=== PATIENT | female | born 1995 | race African-American/Black ===

== ENCOUNTER → 2020-06-16 08:28 | Outpatient (BNVA) | payer OTHER, SELFPAY | PROVIDERS: PCP Internal Medicine; Visit Provider Surgery ==

== ENCOUNTER 2020-06-19 15:59 | Outpatient (REF) | payer OTHER, SELFPAY ==
[2020-06-20 14:22] LABS: H Pylori Breath Test NOT DETECTED (NOT DETECTED)
== END 2020-06-19 16:00 | disposition home or self-care (01) ==
LOC: HO.LNP 15:59
PROVIDERS: Surgery; PCP Internal Medicine; Visit Provider Physician Assistant
DX: Z01.818 Encounter for other preprocedural examination (principal); A04.8 Other specified bacterial intestinal infections
CPT/HCPCS: 83013

== ENCOUNTER 2020-06-20 09:34 | Outpatient (REF) | payer OTHER, SELFPAY ==
--- NOTE | ~2020-06-20 | XR_ITS ---
EXAMINATION: XR CHEST CLINICAL INFORMATION: Shortness of breath. COMPARISON: None TECHNIQUE: 2 views of the chest were obtained. FINDINGS: No significant abnormality is noted involving the heart, lungs, mediastinum, bony thorax or soft tissues. XR/XR chest 2V IMPRESSION: Unremarkable examination.
[2020-06-20 10:10] LABS: MANUAL DIFF FLAG NO
[2020-06-20 10:13] LABS: Basophils Absolute Auto 0.1 X10*3/uL (0.0-0.2); Basophils Percent Auto 0.6 % (0-2); Eosinophils Absolute Auto 0.1 X10*3/uL (0.0-0.4); Eosinophils Percent Auto 0.7 % (0-4); Hematocrit 41.7 % (37-47); Hemoglobin 13.4 g/dl (12.0-16.0); Imm Gran Abs Auto 0.02 X10*3/uL (0.00-0.03); Imm Gran Pct Auto 0.2 % (0.0-0.4); Lymphocytes Absolute Auto 2.7 X10*3/uL (1.2-4.9); Lymphocytes Percent Auto 28.5 % (20-40); Mean Corpuscular HGB Conc 32.1 g/dl (31.0-35.0); Mean Corpuscular Hemoglobin 29.4 pg (27.0-33.0); Mean Corpuscular Volume 91.4 fL (80-98); Mean Platelet Volume 9.6 fL (9.4-12.3); Monocytes Absolute Auto 0.5 X10*3/uL (0.1-1.2); Monocytes Percent Auto 5.5 % (2-11); Neutrophils Absolute Auto 6.2 X10*3/uL (2.0-8.3); Neutrophils Percent Auto 64.5 % (45-73); Platelet Count 444 X10*3/uL (160-400); Red Blood Count 4.56 X10*6/uL (4.20-5.50); Red Cell Distribution Width 13.2 % (11.0-16.0); White Blood Count 9.6 X10*3/uL (4.8-10.8)
[2020-06-20 10:26] LABS: Estimated Average Glucose 94 mg/dL; Hemoglobin A1c % 4.9 %
[2020-06-20 10:41] LABS: Alanine Aminotransferase 24 U/L (0-31); Albumin Level 4.5 g/dL (3.5-5.0); Alkaline Phosphatase 55 U/L (39-117); Anion Gap 13 (12-20); Aspartate Amino Transferase 20 U/L (5-31); Bilirubin Total 0.5 mg/dL (0.0-1.0); Blood Urea Nitrogen 14 mg/dL (9-16); C Reactive Protein 0.77 mg/dL (< or = 0.50); Calcium 9.7 mg/dL (8.4-10.2); Carbon Dioxide 27 mmol/L (22-29); Chloride 104 mmol/L (96-108); Cholesterol 131 mg/dL; Estimated Glomerular Filt Rate > 60; Glucose Fasting 78 mg/dL (60-99); HDL Cholesterol 41 mg/dL; Iron 31 mcg/dL (30-160); LDL Cholesterol Calculated 79 mg/dl; Percent Iron Saturation 8 % (15-50); Potassium 4.7 mmol/L (3.3-5.1); Sodium 139 mmol/L (135-145); Total Iron Binding Capacity 396 mcg/dL (228-428); Total Protein 8.3 g/dL (6.5-8.0); Triglycerides 59 mg/dL; Unsaturated Iron Binding 365 ug/dL
[2020-06-20 11:05] LABS: Thyroid Stimulating Hormone 1.78 uIU/mL (0.32-4.0); Vitamin D 25-OH Total 10.4 ng/mL (>30)
[2020-06-22 03:43] LABS: Vitamin B12 320 pg/mL (200-900)
[2020-06-22 16:17] LABS: PTHI 49 pg/mL (14-64)
[2020-06-24 00:52] LABS: Zinc 71 mcg/dL (60-130)
[2020-06-24 11:17] LABS: Vitamin A 33 mcg/dL (38-98)
[2020-06-25 09:16] LABS: Vitamin B1 10 nmol/L (8-30)
== END 2020-06-20 09:35 | disposition home or self-care (01) ==
LOC: HO.LAB 09:34
PROVIDERS: PCP Internal Medicine; Visit Provider Surgery
DX: Z01.818 Encounter for other preprocedural examination (principal); K91.2 Postsurgical malabsorption, not elsewhere classified; R06.02 Shortness of breath; Z90.3 Acquired absence of stomach [part of]
CPT/HCPCS: 36415; 71046; 80053; 80061; 82306; 82607; 83036; 83540; 83970; 84425; 84443; 84590; 84630; 85025; 86140

== ENCOUNTER → 2020-06-25 15:33 | Outpatient (REF) | payer OTHER, SELFPAY ==
--- NOTE | 2020-06-25 15:40 | ECG_ITS ---
Test Reason : SOB Blood Pressure : / mmHG Vent. Rate : 069 BPM Atrial Rate : 069 BPM P-R Int : 148 ms QRS Dur : 082 ms QT Int : 360 ms P-R-T Axes : 019 061 027 degrees QTc Int : 385 ms Sinus rhythm with marked sinus arrhythmia Otherwise normal ECG No previous ECGs available Referred By: Viktoriya Pryor Electronically Signed By:Pepe Diaz
== END ==
LOC: HO.CARD 15:33
PROVIDERS: PCP Internal Medicine; Visit Provider Surgery
DX: R06.02 Shortness of breath (principal)
CPT/HCPCS: 93005

== ENCOUNTER → 2020-06-29 08:16 | Outpatient (BNVA) | payer OTHER, SELFPAY | PROVIDERS: PCP Internal Medicine; Visit Provider Surgery ==

== ENCOUNTER → 2020-07-14 08:01 | Outpatient (BNVA) | payer OTHER, SELFPAY | PROVIDERS: PCP Internal Medicine; Visit Provider Dietitian, Registered | DX: E66.01 Morbid (severe) obesity due to excess calories (principal); Z68.42 Body mass index [BMI] 45.0-49.9, adult | CPT/HCPCS: 97802 ==

== ENCOUNTER 2020-07-18 10:20 | Outpatient (REF) | payer OTHER, SELFPAY ==
[2020-07-18 11:45] LABS: Vitamin D 25-OH Total 44.6 ng/mL (>30)
[2020-07-22 22:41] LABS: Vitamin A 40 mcg/dL (38-98)
== END 2020-07-18 10:21 | disposition home or self-care (01) ==
LOC: HO.LAB 10:20
PROVIDERS: PCP Internal Medicine; Visit Provider Surgery
DX: Z01.818 Encounter for other preprocedural examination (principal); E55.9 Vitamin D deficiency, unspecified; E50.9 Vitamin A deficiency, unspecified
CPT/HCPCS: 36415; 82306; 84590

== ENCOUNTER → 2020-07-28 16:10 | Outpatient (BNVA) | payer OTHER, SELFPAY | PROVIDERS: PCP Internal Medicine; Visit Provider Surgery ==

== ENCOUNTER → 2020-09-04 15:56 | Outpatient (BNVA) | payer OTHER, SELFPAY | PROVIDERS: PCP Internal Medicine; Visit Provider Surgery ==

== ENCOUNTER → 2020-09-21 16:13 | Outpatient (BNVA) | payer OTHER, SELFPAY | PROVIDERS: Visit Provider Physician Assistant ==

== ENCOUNTER → 2020-09-28 15:34 | Outpatient (BNVA) | payer OTHER, SELFPAY | PROVIDERS: PCP Internal Medicine; Visit Provider Surgery | DX: E66.01 Morbid (severe) obesity due to excess calories (principal); Z01.818 Encounter for other preprocedural examination; R06.02 Shortness of breath; Z68.42 Body mass index [BMI] 45.0-49.9, adult | CPT/HCPCS: 71046 ==

== ENCOUNTER → 2020-10-02 13:19 | Outpatient (BNVA) | payer OTHER, SELFPAY | PROVIDERS: PCP Internal Medicine; Visit Provider Physician Assistant ==

== ENCOUNTER 2020-10-07 06:17 | Inpatient (IN) | payer OTHER, SELFPAY ==
[2020-09-28 17:39] LABS: MANUAL DIFF FLAG NO
[2020-09-28 17:45] LABS: Basophils Percent Auto 0.3 % (0-2); Eosinophils Absolute Auto 0.1 X10*3/uL (0.0-0.4); Eosinophils Percent Auto 0.8 % (0-4); Hematocrit 40.8 % (37-47); Hemoglobin 13.2 g/dl (12.0-16.0); Imm Gran Abs Auto 0.04 X10*3/uL (0.00-0.03); Imm Gran Pct Auto 0.3 % (0.0-0.4); Lymphocytes Absolute Auto 3.6 X10*3/uL (1.2-4.9); Lymphocytes Percent Auto 29.5 % (20-40); Mean Corpuscular HGB Conc 32.4 g/dl (31.0-35.0); Mean Corpuscular Volume 89.7 fL (80-98); Mean Platelet Volume 10.6 fL (9.4-12.3); Monocytes Absolute Auto 0.5 X10*3/uL (0.1-1.2); Monocytes Percent Auto 3.9 % (2-11); Neutrophils Percent Auto 65.2 % (45-73); Platelet Count 389 X10*3/uL (160-400); Red Blood Count 4.55 X10*6/uL (4.20-5.50); Red Cell Distribution Width 14.9 % (11.0-16.0); White Blood Count 12.3 X10*3/uL (4.8-10.8)
[2020-09-28 17:49] LABS: INTERNATIONAL NORM RATIO 1.2 (0.9-1.1)
[2020-09-28 17:49] LABS: Glucose Urine UA NEG (NEG); Leukocyte Esterase Urine NEG (NEG); Nitrite Urine NEG (NEG); Specific Gravity - Urine >= 1.030 (1.005-1.025); Urine Blood 3+ (NEG); Urine Ketones 15 MG/DL (NEG); Urine Protein 1+ MG/DL (NEG-TRACE)
[2020-09-28 17:52] LABS: Partial Thromboplastin Time 41.1 SEC (24.1-38.0)
[2020-09-28 17:54] LABS: Appearance Urine HAZY; Color Urine YELLOW
[2020-09-28 18:01] LABS: Albumin Level 4.2 g/dL (3.5-5.0); Anion Gap 15 (12-20); Blood Urea Nitrogen 10 mg/dL (9-16); Calcium 9.4 mg/dL (8.4-10.2); Carbon Dioxide 23 mmol/L (22-29); Chloride 106 mmol/L (96-108); Estimated Glomerular Filt Rate > 60; Glucose Random 71 mg/dL (60-115); Potassium 4.6 mmol/L (3.3-5.1); Sodium 139 mmol/L (135-145)
[2020-09-28 18:03] LABS: WBC Urine 0-2 /HPF (0-4)
[2020-09-28 18:04] LABS: Bacteria Urine TRACE /LPF; RBC Urine 50-75 /HPF (0); Squamous Epithelial Cell Urine 4+ /LPF
[2020-09-28 18:05] LABS: UPreg QC Valid YES; Urine Pregnancy NEGATIVE (NEGATIVE)
[2020-09-29 11:30] VITALS: BMI 46.0
--- NOTE | 2020-10-02 13:10 | ECG_ITS ---
Test Reason : SSOB Blood Pressure : / mmHG Vent. Rate : 075 BPM Atrial Rate : 075 BPM P-R Int : 146 ms QRS Dur : 078 ms QT Int : 368 ms P-R-T Axes : 012 055 021 degrees QTc Int : 410 ms Normal sinus rhythm Normal ECG No significant changes when compared with the previous EKG of 25 june 2020 Referred By: Viktoriya Pryor Electronically Signed By:LORIE VARGAS
--- NOTE | 2020-10-06 09:32 | P.CONAN_ITS ---
Documented by User: Lorena Blue 10/06/20 09:33 HPI - Anesthesia Eval Consult details Narrative: 24yo F for Gastrectomy Sleeve,EGD,poss diaphragmatic hernia,poss ventral hernia,poss open PMFSH Active Problems Active Problems: All Active Problems (Updated 07/06/20 @ 15:37 by Ligia Bermudez, [facility]) Morbid obesity (Acute) BMI 45.0-49.9, adult (Acute) Adjustment disorder, unspecified (Acute) Vitamin A deficiency (Acute) Vitamin D deficiency (Acute) BMI 50.0-59.9, adult (Acute) SOB (shortness of breath) (Acute) Pre-op evaluation (Acute) Past Medical History Medical History HTN (hypertension) Family History Family History Mother No problems noted. Father No problems noted. Brother No problems noted. Brother No problems noted. Sister Obese Asthma Sister No problems noted. Surgical History Surgical History History of bunionectomy S/P laparoscopic cholecystectomy Social History Social History Are you a primary career placement services counselor to a significant other at home: No Do you presently have visiting nurse or other home services: No Alcohol intake: never Patient Tobacco Use Status: Never used Tobacco Use of substances other than those prescribed or required for medical reasons: No Have you been hit, kicked, punched, or otherwise hurt by someone within the past year? If so, by whom?: No Are you DNR?: No Advance Directives: No Advance Directives Information Provided: No Advance Directives on File: No Recently lost weight without trying: No Patient : No FDLMP: 09/28/2020 : No Poor oral hygiene: No Meds Allergies Allergy/AdvReac Type Severity Reaction Status Date / Time Latex, Natural Rubber Allergy Severe Rash Verified 10/07/20 06:15 Home Medications Medication Instructions Recorded Confirmed Last Taken Type cetirizine 10 mg tablet (Zyrtec) 10 mg PO DAILY PRN 07/28/20 09/28/20 Unknown History Exam Exam Date and Time: October 06, 2020 0932 Height,Weight and Vital Signs: Height 5 ft 2 in Weight 114.305 kg Pertinent Lab Results Pertinent Lab Results: Laboratory Tests 09/28/20 09/28/20 09/28/20 16:45 16:45 16:45 WBC 12.3 H RBC 4.55 Hgb 13.2 Hct 40.8 MCV 89.7 MCH 29.0 MCHC 32.4 RDW 14.9 Plt Count 389 MPV 10.6 Immature Gran % (Auto) 0.3 Neut % (Auto) 65.2 Lymph % (Auto) 29.5 [place] % (Auto) 3.9 Eos % (Auto) 0.8 Baso % (Auto) 0.3 Lymph # (Auto) 3.6 [place] # (Auto) 0.5 Eos # (Auto) 0.1 Baso # (Auto) 0.0 Abs Immat Gran (auto) 0.04 H Absolute Neuts (auto) 8.0 Absolute Nucleated RBC 0.000 Nucleated RBC % (auto) 0.0 PT 14.0 H INR 1.2 H APTT 41.1 H Sodium 139 Potassium 4.6 Chloride 106 Carbon Dioxide 23 Anion Gap 15 BUN 10 Creatinine 0.76 Estim Creat Clear Calc TNP Estimated GFR > 60 Random Glucose 71 Calcium 9.4 Albumin 4.2 Urine Color Urine Appearance Urine pH Ur Specific [place] Urine Protein Urine Glucose (UA) Urine Ketones Urine Blood Urine Nitrite Ur Leukocyte Esterase Urine RBC Urine WBC Ur Squamous Epith Cells Urine Bacteria Urine Test Blood Type Antibody Screen 09/28/20 09/28/20 10/02/20 16:55 16:55 15:18 WBC RBC Hgb Hct MCV MCH MCHC RDW Plt Count MPV Immature Gran % (Auto) Neut % (Auto) Lymph % (Auto) [place] % (Auto) Eos % (Auto) Baso % (Auto) Lymph # (Auto) [place] # (Auto) Eos # (Auto) Baso # (Auto) Abs Immat Gran (auto) Absolute Neuts (auto) Absolute Nucleated RBC Nucleated RBC % (auto) PT INR APTT Sodium Potassium Chloride Carbon Dioxide Anion Gap BUN Creatinine Estim Creat Clear Calc Estimated GFR Random Glucose Calcium Albumin Urine Color YELLOW Urine Appearance HAZY Urine pH 6.0 Ur Specific [place] >= 1.030 H Urine Protein 1+ H Urine Glucose (UA) NEG Urine Ketones 15 Urine Blood 3+ H Urine Nitrite NEG Ur Leukocyte Esterase NEG Urine RBC 50-75 H Urine WBC 0-2 Ur Squamous Epith Cells 4+ Urine Bacteria TRACE Urine Test NEGATIVE Blood Type O Positive Antibody Screen NEGATIVE Narrative Narrative: EKG 09/2020 Vent. Rate : 075 BPM ? ? Atrial Rate : 075 BPM ?? P-R Int : 146 ms? QRS Dur : 078 ms ? ? QT Int : 368 ms ? ? ? P-R-T Axes : 012 055 021 degrees ?? QTc Int : 410 ms ? Normal sinus rhythm Normal ECG No significant changes when compared with the previous EKG? of 25 june 2020 Assessment and Plan Assessment Anesthesia Assessment: Chart Reviewed Documented by User: Katlin Egan 10/07/20 08:10 [facility] Active Problems Active Problems: All Active Problems (Updated 07/06/20 @ 15:37 by Ligia Bermudez, [facility]) Morbid obesity (Acute). Denies h/o SENG BMI 45.0-49.9, adult (Acute) Adjustment disorder, unspecified (Acute) Vitamin A deficiency (Acute) Vitamin D deficiency (Acute) BMI 50.0-59.9, adult (Acute) SOB (shortness of breath) (Acute) Pre-op evaluation (Acute) Past Medical History Medical History HTN (hypertension) Family History Family History Mother No problems noted. Father No problems noted. Brother No problems noted. Brother No problems noted. Sister Obese Asthma Sister No problems noted. Family history of problems with anesthesia: No Surgical History Surgical History History of bunionectomy S/P laparoscopic cholecystectomy History of Problems with Anesthesia: No Social History Social History Are you a primary career placement services counselor to a significant other at home: No Do you presently have visiting nurse or other home services: No Alcohol intake: never Patient Tobacco Use Status: Never used Tobacco Use of substances other than those prescribed or required for medical reasons: No Have you been hit, kicked, punched, or otherwise hurt by someone within the past year? If so, by whom?: No Are you DNR?: No Advance Directives: No Advance Directives Information Provided: No Advance Directives on File: No Recently lost weight without trying: No Patient : No FDLMP: 09/28/2020 : No Poor oral hygiene: No Meds Allergies Allergy/AdvReac Type Severity Reaction Status Date / Time Latex, Natural Rubber Allergy Severe Rash Verified 10/07/20 06:15 Home Medications Medication Instructions Recorded Confirmed Last Taken Type cetirizine 10 mg tablet (Zyrtec) 10 mg PO DAILY PRN 07/28/20 09/28/20 Unknown History Exam Pertinent Lab Results Pertinent Lab Results: Laboratory Tests 09/28/20 09/28/20 09/28/20 16:45 16:45 16:45 WBC 12.3 H RBC 4.55 Hgb 13.2 Hct 40.8 MCV 89.7 MCH 29.0 MCHC 32.4 RDW 14.9 Plt Count 389 MPV 10.6 Immature Gran % (Auto) 0.3 Neut % (Auto) 65.2 Lymph % (Auto) 29.5 [place] % (Auto) 3.9 Eos % (Auto) 0.8 Baso % (Auto) 0.3 Lymph # (Auto) 3.6 [place] # (Auto) 0.5 Eos # (Auto) 0.1 Baso # (Auto) 0.0 Abs Immat Gran (auto) 0.04 H Absolute Neuts (auto) 8.0 Absolute Nucleated RBC 0.000 Nucleated RBC % (auto) 0.0 PT 14.0 H INR 1.2 H APTT 41.1 H Sodium 139 Potassium 4.6 Chloride 106 Carbon Dioxide 23 Anion Gap 15 BUN 10 Creatinine 0.76 Estim Creat Clear Calc TNP Estimated GFR > 60 Random Glucose 71 Calcium 9.4 Albumin 4.2 Urine Color Urine Appearance Urine pH Ur Specific [place] Urine Protein Urine Glucose (UA) Urine Ketones Urine Blood Urine Nitrite Ur Leukocyte Esterase Urine RBC Urine WBC Ur Squamous Epith Cells Urine Bacteria Urine Test Blood Type Antibody Screen 07/26/21 07/26/21 07/30/21 16:55 16:55 15:18 WBC RBC Hgb Hct MCV MCH MCHC RDW Plt Count MPV Immature Gran % (Auto) Neut % (Auto) Lymph % (Auto) [place] % (Auto) Eos % (Auto) Baso % (Auto) Lymph # (Auto) [place] # (Auto) Eos # (Auto) Baso # (Auto) Abs Immat Gran (auto) Absolute Neuts (auto) Absolute Nucleated RBC Nucleated RBC % (auto) PT INR APTT Sodium Potassium Chloride Carbon Dioxide Anion Gap BUN Creatinine Estim Creat Clear Calc Estimated GFR Random Glucose Calcium Albumin Urine Color YELLOW Urine Appearance HAZY Urine pH 6.0 Ur Specific [place] >= 1.030 H Urine Protein 1+ H Urine Glucose (UA) NEG Urine Ketones 15 Urine Blood 3+ H Urine Nitrite NEG Ur Leukocyte Esterase NEG Urine RBC 50-75 H Urine WBC 0-2 Ur Squamous Epith Cells 4+ Urine Bacteria TRACE Urine Test NEGATIVE Blood Type O Positive Antibody Screen NEGATIVE Lab Results 09/28/20 09/28/20 09/28/20 Range/Units 16:45 16:45 16:45 WBC 12.3 H (4.8-10.8) X10*3/uL RBC 4.55 (4.20-5.50) X10*6/uL Hgb 13.2 (12.0-16.0) g/dl Hct 40.8 (37-47) % MCV 89.7 (80-98) fL MCH 29.0 (27.0-33.0) pg MCHC 32.4 (31.0-35.0) g/dl RDW 14.9 (11.0-16.0) % Plt Count 389 (160-400) X10*3/uL MPV 10.6 (9.4-12.3) fL Immature Gran % (Auto) 0.3 (0.0-0.4) % Neut % (Auto) 65.2 (45-73) % Lymph % (Auto) 29.5 (20-40) % [place] % (Auto) 3.9 (2-11) % Eos % (Auto) 0.8 (0-4) % Baso % (Auto) 0.3 (0-2) % Lymph # (Auto) 3.6 (1.2-4.9) X10*3/uL [place] # (Auto) 0.5 (0.1-1.2) X10*3/uL Eos # (Auto) 0.1 (0.0-0.4) X10*3/uL Baso # (Auto) 0.0 (0.0-0.2) X10*3/uL Abs Immat Gran (auto) 0.04 H (0.00-0.03) X10*3/uL Absolute Neuts (auto) 8.0 (2.0-8.3) X10*3/uL Absolute Nucleated RBC 0.000 (0.0-0.012) X10*3/uL Nucleated RBC % (auto) 0.0 (0.0-0.2) /100WBC PT 14.0 H (9.9-13.0) SEC INR 1.2 H (0.9-1.1) APTT 41.1 H (24.1-38.0) SEC Sodium 139 (135-145) mmol/L Potassium 4.6 (3.3-5.1) mmol/L Chloride 106 (96-108) mmol/L Carbon Dioxide 23 (22-29) mmol/L Anion Gap 15 (12-20) BUN 10 (9-16) mg/dL Creatinine 0.76 (0.5-1.4) mg/dL Estim Creat Clear Calc TNP Estimated GFR > 60 Random Glucose 71 (60-115) mg/dL Calcium 9.4 (8.4-10.2) mg/dL Albumin 4.2 (3.5-5.0) g/dL Urine Color Urine Appearance Urine pH (5.0-8.0) Ur Specific [place] (1.005-1.025) Urine Protein (NEG-TRACE) MG/DL Urine Glucose (UA) (NEG) MG/DL Urine Ketones (NEG) MG/DL Urine Blood (NEG) Urine Nitrite (NEG) Ur Leukocyte Esterase (NEG) Urine RBC (0) /HPF Urine WBC (0-4) /HPF Ur Squamous Epith Cells /LPF Urine Bacteria /LPF Urine Test (NEGATIVE) COVID-19 ([facility]) (Negative) COVID-19 Clin Com Blood Type Antibody Screen 09/28/20 09/28/20 10/02/20 Range/Units 16:55 16:55 15:18 WBC (4.8-10.8) X10*3/uL RBC (4.20-5.50) X10*6/uL Hgb (12.0-16.0) g/dl Hct (37-47) % MCV (80-98) fL MCH (27.0-33.0) pg MCHC (31.0-35.0) g/dl RDW (11.0-16.0) % Plt Count (160-400) X10*3/uL MPV (9.4-12.3) fL Immature Gran % (Auto) (0.0-0.4) % Neut % (Auto) (45-73) % Lymph % (Auto) (20-40) % [place] % (Auto) (2-11) % Eos % (Auto) (0-4) % Baso % (Auto) (0-2) % Lymph # (Auto) (1.2-4.9) X10*3/uL [place] # (Auto) (0.1-1.2) X10*3/uL Eos # (Auto) (0.0-0.4) X10*3/uL Baso # (Auto) (0.0-0.2) X10*3/uL Abs Immat Gran (auto) (0.00-0.03) X10*3/uL Absolute Neuts (auto) (2.0-8.3) X10*3/uL Absolute Nucleated RBC (0.0-0.012) X10*3/uL Nucleated RBC % (auto) (0.0-0.2) /100WBC PT (9.9-13.0) SEC INR (0.9-1.1) APTT (24.1-38.0) SEC Sodium (135-145) mmol/L Potassium (3.3-5.1) mmol/L Chloride (96-108) mmol/L Carbon Dioxide (22-29) mmol/L Anion Gap (12-20) BUN (9-16) mg/dL Creatinine (0.5-1.4) mg/dL Estim Creat Clear Calc Estimated GFR Random Glucose (60-115) mg/dL Calcium (8.4-10.2) mg/dL Albumin (3.5-5.0) g/dL Urine Color YELLOW Urine Appearance HAZY Urine pH 6.0 (5.0-8.0) Ur Specific [place] >= 1.030 H (1.005-1.025) Urine Protein 1+ H (NEG-TRACE) MG/DL Urine Glucose (UA) NEG (NEG) MG/DL Urine Ketones 15 (NEG) MG/DL Urine Blood 3+ H (NEG) Urine Nitrite NEG (NEG) Ur Leukocyte Esterase NEG (NEG) Urine RBC 50-75 H (0) /HPF Urine WBC 0-2 (0-4) /HPF Ur Squamous Epith Cells 4+ /LPF Urine Bacteria TRACE /LPF Urine Test NEGATIVE (NEGATIVE) COVID-19 ([facility]) (Negative) COVID-19 Clin Com Blood Type O Positive Antibody Screen NEGATIVE 10/07/20 10/07/20 Range/Units 06:19 06:20 WBC (4.8-10.8) X10*3/uL RBC (4.20-5.50) X10*6/uL Hgb (12.0-16.0) g/dl Hct (37-47) % MCV (80-98) fL MCH (27.0-33.0) pg MCHC (31.0-35.0) g/dl RDW (11.0-16.0) % Plt Count (160-400) X10*3/uL MPV (9.4-12.3) fL Immature Gran % (Auto) (0.0-0.4) % Neut % (Auto) (45-73) % Lymph % (Auto) (20-40) % [place] % (Auto) (2-11) % Eos % (Auto) (0-4) % Baso % (Auto) (0-2) % Lymph # (Auto) (1.2-4.9) X10*3/uL [place] # (Auto) (0.1-1.2) X10*3/uL Eos # (Auto) (0.0-0.4) X10*3/uL Baso # (Auto) (0.0-0.2) X10*3/uL Abs Immat Gran (auto) (0.00-0.03) X10*3/uL Absolute Neuts (auto) (2.0-8.3) X10*3/uL Absolute Nucleated RBC (0.0-0.012) X10*3/uL Nucleated RBC % (auto) (0.0-0.2) /100WBC PT (9.9-13.0) SEC INR (0.9-1.1) APTT (24.1-38.0) SEC Sodium (135-145) mmol/L Potassium (3.3-5.1) mmol/L Chloride (96-108) mmol/L Carbon Dioxide (22-29) mmol/L Anion Gap (12-20) BUN (9-16) mg/dL Creatinine (0.5-1.4) mg/dL Estim Creat Clear Calc Estimated GFR Random Glucose (60-115) mg/dL Calcium (8.4-10.2) mg/dL Albumin (3.5-5.0) g/dL Urine Color Urine Appearance Urine pH (5.0-8.0) Ur Specific [place] (1.005-1.025) Urine Protein (NEG-TRACE) MG/DL Urine Glucose (UA) (NEG) MG/DL Urine Ketones (NEG) MG/DL Urine Blood (NEG) Urine Nitrite (NEG) Ur Leukocyte Esterase (NEG) Urine RBC (0) /HPF Urine WBC (0-4) /HPF Ur Squamous Epith Cells /LPF Urine Bacteria /LPF Urine Test NEGATIVE (NEGATIVE) COVID-19 ([facility]) Negative (Negative) COVID-19 Clin Com See Note Blood Type Antibody Screen Airway Mallampati Class: II TM Dist: >3cm Neck ROM: Full Loose/Missing/Broken Teeth: No Heart: RRR Lungs: CTAB Assessment and Plan Assessment Anesthesia Assessment: Anesthesia Plan Discussed Final Anesthetic Review Family History of Problems with Anesthesia: No History of Problems with Anesthesia: No NPO: Yes ASA Class: III Final Preanesthetic Review: No Changes in Pt Med Stat, Meds/Allgs Chart Reviewed, Consent Obtained/Reviewed and Anes Risks/Benef Reviewed Patient Risk: Intermediate Procedure Risk: Intermediate Assessment/Block/Sedation in SS: Assess/Block/Sedation-SS Anesthetic Plan Anesthetic Plan: GA Disposition: Standard PACU and Inp. Admit - Standard Bed
--- NOTE | 2020-10-06 16:36 | MHC.SHP ---
Pre-Procedural Eval Section A Date of Service: 10/06/20 Section B Chief Complaint: morbid obesity Allergies: Allergies Allergy/AdvReac Type Severity Reaction Status Date / Time Latex, Natural Rubber Allergy Severe Rash Verified 09/29/20 11:30 Plan I have reviewed the history and physical and performed a pertinent physical examination on my patient. No changes have occurred unless specified.
[2020-10-07] VITALS (11 sets, daily range): BP systolic 133–158; BP diastolic 68–86; PULSE 65–107; RESP 14–18; TEMP 35.9–36.6; O2SAT 97–100
--- NOTE | ~2020-10-07 | XR_ITS ---
EXAMINATION: XR CHEST CLINICAL INFORMATION: Shortness of breath COMPARISON: Previous chest x-ray June 2020 TECHNIQUE: 2 views of the chest were obtained. FINDINGS: No significant abnormality is noted involving the heart, lungs, mediastinum, bony thorax or soft tissues. XR/XR chest 2V IMPRESSION: Unremarkable examination.
[2020-10-07 06:44] LABS: UPreg QC Valid YES; Urine Pregnancy NEGATIVE (NEGATIVE)
[2020-10-07] MEDS: Lactated Ringers 1,000 ML 100 ML IVCONT (06:47)
[2020-10-07 06:56] LABS: COVID-19 Test Negative (Negative); IDNOW Serial# 9DD0AD1C
--- NOTE | 2020-10-07 10:08 | PM.PNGS ---
Subjective Subjective Date of Service: 10/08/20 Interval history: Pod #1 s/p LSG and HH repair. Doing well. Tolerating stage 3 diet, ambulating in hallway. Pain well controlled. Denies nausea or vomiting. Vitals and labs reviewed and are within limit for post op day 1. On exam, patient is well appearing, abdomen is soft, nd, mild appropriate incisional tenderness. Incisions c/d/i with dermabond in place. Plan: d/c home today. Follow up with me in 2 weeks. Physical Exam Vital Signs: Vital Signs: Last Vital Signs Temp 97.1 F 10/07/20 06:36 Pulse 90 10/07/20 06:36 Resp 18 10/07/20 06:36 BP 133/86 10/07/20 06:36 Pulse Ox 99 10/07/20 06:36 Body Mass Index 46.0 Const: General: cooperative, comfortable, no acute distress, alert and awake Nutritional Appearance: obese GI: Inspection: Yes normal to inspection, No distended and Yes incision (clean, dry, intact, dermabond in place) Palpation (GI): Soft to palpation and Tenderness to palpation present (GI) (mild appropriate incisional tenderness) Extrem: Right lower extremity: lower leg Details: Negative for no tenderness; No no edema Left lower extremity: lower leg Details: Negative for no tenderness; No no edema Progress Note: A&P Assessment and plan (1) Morbid obesity: Status: Acute (2) S/P laparoscopic sleeve gastrectomy: Status: Acute (3) Hiatal hernia: Status: Acute (4) History of repair of hiatal hernia: Status: Acute Fall Risk Details Current Medications: Current Medications Generic Name Dose Route Start Last Admin Trade Name Freq PRN Reason Stop Dose Admin Fentanyl 25 mcg 10/07/20 08:10 Fentanyl Citrate/Pf 100 Mcg/2 Ml Vial IVPUSH Q5M PRN Pain, Moderate (Pain Scale 4-6 Hydromorphone HCl 0.25 mg 10/07/20 08:10 Hydromorphone Hcl 0.5 Mg/0.5 Ml Syringe IVPUSH Q5M PRN Pain, Severe (Pain Scale 7-10) Hydromorphone HCl 0.25 mg 10/07/20 10:02 Hydromorphone Hcl 0.5 Mg/0.5 Ml Syringe IVPUSH Q4H PRN Pain, Severe (Pain Scale 7-10) Lactated Ringer's 1,000 mls @ 100 mls/hr 10/07/20 06:15 10/07/20 06:47 Lr IVCONT 100 mls/hr .Q10H KAYCE Administration Promethazine HCl 6.25 mg/ 50.25 mls @ 201 mls/hr 10/07/20 08:10 Sodium Chloride IV ONCE PRN Nausea and Vomiting Lactated Ringer's 1,000 mls @ 125 mls/hr 10/07/20 10:15 Lr IVCONT .Q8H KAYCE Cefotetan Disodium 2 gm/ 50 mls @ 100 mls/hr 10/07/20 21:00 Sodium Chloride IV 10/07/20 21:29 POSTOP ONE Acetaminophen 1,000 mg in 100 mls @ 16.7 mls/hr 10/07/20 10:15 Ofirmev IV .Q6H KAYCE Metoclopramide HCl 10 mg 10/07/20 10:02 Metoclopramide Hcl 10 Mg/2 Ml Vial IVPUSH Q6H PRN Nausea Ondansetron HCl 4 mg 10/07/20 08:10 Ondansetron Hcl 4 Mg/2 Ml Vial IVPUSH ONCE PRN Nausea and Vomiting Ondansetron HCl 4 mg 10/07/20 10:15 Ondansetron Hcl 4 Mg/2 Ml Vial IVPUSH Q8H KAYCE Sodium Chloride 3 ml 10/07/20 16:00 0.9 % Sodium Chloride Flush 3 Ml Syringe IVFLUSH QSHIFT KAYCE Time Spent With Patient Time: Total time spent is greater than 50% in coordination of care (as documented) at patient's floor/unit and/or counseling patient: Time with patient: 25 - 35 minutes
--- NOTE | 2020-10-07 10:09 | PM.DS ---
DS: Providers Provider Date of Service: 10/08/20 Date of admission: 10/07/20 06:17 Primary care physician: Lesa Redd MD DS: Diagnosis Discharge Diagnosis (1) Morbid obesity: Status: Acute (2) S/P laparoscopic sleeve gastrectomy: Status: Acute (3) Hiatal hernia: Status: Acute (4) History of repair of hiatal hernia: Status: Acute DS: Medications Discharge Medications Home Medications: Home Medications Medication Instructions Recorded Confirmed cetirizine 10 mg tablet (Zyrtec) 10 mg PO DAILY PRN 07/28/20 09/28/20 Previous Rx's Medication Instructions Recorded acetaminophen 500 mg tablet 1,000 mg PO Q6H PRN #30 tab 09/28/20 (Tylenol Extra Strength) docusate sodium 100 mg capsule 100 mg PO BID #30 cap 09/28/20 (Colace) famotidine 20 mg tablet (Pepcid AC) 20 mg PO DAILY #30 tab 09/28/20 ondansetron HCl 4 mg tablet 4 mg PO Q6H PRN #30 tab 09/28/20 (Zofran) simethicone 80 mg chewable tablet 80 mg PO TID-QID PRN #30 tab 09/28/20 (Gas Relief (simethicone)) DS: Summary Time Spent with Patient Time attestation: Total time spent providing and/or coordinating discharge services: Discharge coordination time: Greater than 30 minutes Quality: Stroke Does the patient have a stroke diagnosis?: No Physical Exam Vital Signs: Vital Signs: Last Vital Signs Temp 97.1 F 10/07/20 06:36 Pulse 90 10/07/20 06:36 Resp 18 10/07/20 06:36 BP 133/86 10/07/20 06:36 Pulse Ox 99 10/07/20 06:36 Body Mass Index 46.0 DS: Data Data Completed and Pending Pending studies at discharge: Pending at discharge 10/07/20 09:54 Surgical [PTH] Routine Labs on day of discharge: Laboratory Results - last 24 hr 10/07/20 10/07/20 06:19 06:20 Urine Test NEGATIVE COVID-19 ([facility]) Negative COVID-19 Clin Com See Note Discharge Plan Discharge Patient Disposition: Home, Self-Care Discharge Diagnosis: obesity s/p LSG and HH repair Referrals: Lesa Redd MD [Primary Care Provider] - 1 Week Discharge Medications: Continued cetirizine [Zyrtec] 10 mg tablet 10 mg PO DAILY PRNRF: 0 acetaminophen [Tylenol Extra Strength] 500 mg tablet 1,000 mg PO Q6H PRN (Reason: pain) Qty: 30 RF: 1 famotidine [Pepcid AC] 20 mg tablet 20 mg PO DAILY Qty: 30 RF: 1 simethicone [Gas Relief (simethicone)] 80 mg tablet,chewable 80 mg PO TID-QID PRN (Reason: abdominal distention) Qty: 30 RF: 1 ondansetron HCl [Zofran] 4 mg tablet 4 mg PO Q6H PRN (Reason: nausea and vomiting) Qty: 30 RF: 1 docusate sodium [Colace] 100 mg capsule 100 mg PO BID Qty: 30 RF: 1 Discharge Orders: Discharge Order (Routine); Ordered 10/08/20 Ordered By: Viktoriya Pryor Diet: other Activity on Discharge: No heavy lifting Stand Alone Forms: Patient Portal Discharge page Activity Restrictions/Additional Instructions: Discharge Instructions 1. Please call your doctor or come back to the emergency room should any new symptoms arise. 2. You will receive a courtesy call from [facility] 24-48 hours after discharge. 3. Activity: abstain from alcohol, practice limited stair climbing, no bending, no driving, no exercise, no illicit substances, no lifting, no sex, no tub bath, no work. 4. Diet: continue stage 3 protein shakes until your [address] Pryor. 5. Dressing Change/Wound Care: Your incision is covered by surgical glue. If the area is tender, you may apply an ice pack for short intervals (no more than 20 minutes on, followed by at least 20 minutes off). Do not apply heat. Do not use creams, lotions, or topical antibiotics unless instructed to do so by your surgeon. These can cause infection or allergic reaction. 6. Call your doctor if: - Your temperature exceeds 101.5 F - You experience excessive pain or swelling - You have an unexpected reaction to medication - You have excessive bleeding - You experience continued vomiting/nausea - Your incision begins to separate - Your incision shows signs of infection such as increased redness, swelling, excessive pain, heat, or drainage (light blood or clear fluid is normal) 7. General instructions: - No lifting greater than 5 lbs for the next 4 weeks. - No driving within 24 hours of taking narcotic pain medications. - If you do not move your bowels in the next 2 days, please take milk of magnesia over the counter. Please follow the post op diet and do not advance your diet until you are seen in the office in about 2 weeks. - Please walk around your home every hour or two to prevent blood clots from forming in your legs. You do not need to wake from sleeping to walk. - Please sleep in a bed or couch to prevent kinking at the hips and knees. - Please take your incentive spirometer (your lung technology integration specialist) home with you and use it for the next few days to prevent pneumonias. - You may shower, no hot tubs, baths or swimming pools. - Please call the office with any questions or concerns such as increasing abdominal pain, fever, chills, shortness of breath, chest pain, leg pain or swelling, or redness or drainage from your incisions. - Please stay on stage 3 diet which includes sugar free clear liquids such as ice pops and jello and broth and crystal light. Avoid all carbonation. Please drink 3 protein shakes with at least 25-30 grams of protein daily or 3 of the Celebrate 4:1 shakes which can be purchased in our office. The Celebrate shakes have all of the bariatric vitamins you need if you consume these shakes. If you are drinking other protein shakes, you will need to purchase the Celebrate multivitamins and calcium that we provide in the office (they will provide all the vitamins you need). Please make sure you are consuming at least 40-60 ounces of water in addition to your 3 protein shakes daily. 8. Do not hesitate to contact the office with any questions at . The patient's medical history has been reviewed and they are considered low risk for post op DVT and therefore DVT prophylaxis is not considered necessary. Travel after surgery was reviewed. The patient has not disclosed any travel plans during the first 30 days after surgery and they have been advised that within the first 30 days after surgery any bus, plane, train or car travel over 2 hours in duration is contraindicated due to the possibility of developing blood clots from immobility. Any travel, needs to include periods of ambulation of 10 minutes in duration every 2 hours. The patient was instructed to discuss any plans for travel during this period with their bariatric surgeon. Discharge Summary Date of Service: 10/08/20 Pre-op diagnosis: Morbid obesity, BMI 45.5, and hypertension Post-op diagnosis: other (Same and hiatal hernia) Procedure: Laparoscopic sleeve gastrectomy, hiatal hernia repair, Ihsan block, and intraoperative endoscopy Discharge Medications: 1. Simethicone 80mg tablet chewable (Si tablet every 6 hours orally for 7 days, #28, 1 RF) q4h prn gas 2. Acetaminophen 500 mg tablet (Si tablets as needed every 6 hours orally for 30 days, #240, 0 RF) 3. Ondansetron 4 mg tablet disintegrating (Si tablet every 6 hours orally for 7 days, #28, 1 RF) 4. Colace 100 mg capsule (Si capsule twice a day for 30 days, #60, 2 RF) 5. Pepcid 20 mg chewable tablet (Si tablet twice a day for 30 days, #60, 3 RF) Discharge Instructions: The patient should continue on the stage III bariatric diet, which includes 3 protein shakes of at least 20-30g of protein on a daily basis. The patient was encouraged to avoid drinking liquids with her protein shakes. They should wait 30-45 minutes in between her meals and drinking water. She should drink at least 40-60 ounces of water on a daily basis. They should ambulate while at home to avoid any blood clots in her lower extremities. They should call with any questions or concerns such as increase in abdominal pain, persistent nausea, vomiting, redness and drainage from her incisions, fever, chills, shortness of breast, or chest pain beyond what is normal for her. The patient should avoid all heavy lifting greater than 5 pounds for the next 4 weeks. The patient is already scheduled to follow up with me in 2 weeks time, but should call the office with any questions prior to that follow up appointment. The patient should not advance their diet until they are seen in the office for the 2 week appointment. Hospital Course: The patient was admitted after undergoing a LSG and HH repair. They were started on stage II (1 oz of fluid every 15 minutes) on POD #0. The next morning they were evaluated and started on stage III diet (protein shakes). All labs were within normal limits. On post-operative day #1 she was feeling better, nausea and epigastric pain improved and they were tolerating stage III bariatric diet well. The patient was discharged home. Discharge Disposition: Home. Care Plan Goals: weight loss Health Concerns: obesity Plan of Treatment: LSG Assessment: POD #1 s/p LSG and HH repair Discharge Date/Time: 10/08/20 09:42
[2020-10-07] MEDS: HYDROmorphone HCl 0.5 MG/0.5 ML SYRINGE 0.25 MG IVPUSH ×2 (10:20→10:25)
--- NOTE | 2020-10-07 10:20 | P.BOP_ITS ---
Brief Operative Note Date of Service: 10/07/20 Pre-op diagnosis: Morbid obesity, BMI 45.5, and hypertension Post-op diagnosis: other (Same and hiatal hernia) Procedure: Laparoscopic sleeve gastrectomy, hiatal hernia repair, Ihsan block, and intraoperative endoscopy Implants: None Surgeon: Viktoriya Pryor MD Anesthesia: GETA Was an Sand System Operator used for this Procedure?: Yes Sand System Operator: Anine Davis Estimated blood loss (mL): 5 Pathology: other (Partial gastrectomy) Condition: stable Disposition: PACU
--- NOTE | 2020-10-07 10:21 | P.OP_ITS ---
Operative Note Operative Note Date of Service: 10/07/20 Narrative: Patient was brought into the operating room and placed on the operating room table in the supine position. General anesthesia was induced. Normal DVT prophylaxis was instituted and the patient received 2 grams of cefotetan preoperatively. The abdomen was then prepped and draped in the normal sterile fashion. A safety time-out was performed. A mixture of 1% lidocaine with epinephrine and ?% Marcaine plain was used to an esthetize the planned incision site in the left upper quadrant. A #11 scalpel was used to make a 5 mm left upper quadrant transverse incision through which a veress needle was placed. Three pops were heard going through the fascia. A saline drop test was used to confirm that the veress needle was intraabdominal. An optiview technique was then used to place a 5mm port in the left upper quadrant. A 5 mm 30 degree laproscope was then placed through this port and the abdominal cavity was surveyed and was normal. The patient was placed in reverse Trendelenburg positioning. A conor liver retractor was then placed in the subxyphoid position and it was used to hold up the left lobe of the liver to the abdominal wall. This was secured to the bed using the liver retractor cruz. A MIKE block was then performed for pain control on the right side of the abdomen. A 5 mm port was placed in the right upper quadrant near the falciform ligament. A 12 mm port was then placed in the mid epigastrium. One additional 5 mm port was placed in the left upper quadrant just to the left of the placement of the first port. I then performed a MIKE block on the left side of the abdomen. I then removed the epigastric fat pad; there was a small anterior hiatal hernia noted. I reapproximated the left and right crura with a total of 2 stitches of 2-0 ethibond and a laparoscopic knot pusher. There was no residual hiatal hernia. I then opened up the angle of His. We then gained entry into the lesser sac about 4-5 cm from the pylorus. I had anesthesia place a 34 Martiniquais orogastric tube into the distal antrum to use as a sizing tool for gastric pouch size. I divided the short gastric vessels up to the angle of His. We then started the creation of the gastric pouch by firing a 60 mm purple load endostapler up the stomach about 4-5 cm from the pylorus. We completed the creation of the gastric pouch using a total of 4 firings of a 60 mm purple load stapler. We had anesthesia remove the orogastric tube, then we clamped across the distal antrum using a fired 60 mm endostapler. We flattened the patient and then instilled normal saline surrounding the newly created staple line. I then performed an on-table endoscopy. I passed the gastroscopy into the posterior oropharynx and down the esophagus evaluating the esophageal mucosa which was normal. There was no evidence of hiatal hernia. I passed the gastroscope into the gastric pouch and insufflated the gastric pouch. There was healthy pink mucosa and no evidence of active bleeding. There was no evidence of leak on laparoscopy. I desufflated the gastric pouch and removed the endoscope. I removed the endostapler from the abdomen and suctioned the fluid from the left upper quadrant. I then removed the partial gastrectomy specimen through the epigastric 12 mm port site. I reapproximated the 12 mm port using a 0 maxon suture with a laparoscopic suture passer. I instilled local anesthetic into the fascial closure site and tied the suture down at a pressure of 8-10 mm of Hg. There was no residual fascial defect. We removed the liver retractor and the left upper quadrant 5 mm ports under direct visualization. There was no evidence of any active bleeding. I desufflated the abdomen through the last remaining port and removed the laparoscope and 5 mm port. We reapproximated all incisions with a 4-0 monocryl subcuticular stitch. We cleaned and dried the abdominal skin and applied dermabond skin glue. All count were correct at the end of the case. The patient was awake and in stable condition prior to extubation and transfer to the recovery room.
[2020-10-07] MEDS: Lactated Ringers 1,000 ML 125 ML IVCONT ×2 (11:52→17:41)
[2020-10-07] MEDS: Metoclopramide HCl 10 MG/2 ML VIAL IVPUSH (13:57)
--- NOTE | 2020-10-07 15:07 | MHC.CM.PN ---
CM MET WITH PTS MOTHER WHO WAS AT BEDSIDE WHILE PT WAS SLEEPING. PTS MOTHER REPORTS THE PT LIVES WITH HER GIRL FRIEND AND IS INDEPENDENT WITH ALL CARE. SHE REPORTS THE PT DOES NOT USE DME OR SERVICES, SHE WORKS AND DRIVES. CURRENT DC PLAN IS HOME WITH NO SERVICES
[2020-10-07] MEDS: cefoTEtan disodium 2 GM in 0.9 % Sodium Chloride 50 ML IV (20:50)
[2020-10-07] MEDS: 0.9 % Sodium Chloride Flush 3 ML SYRINGE IVFLUSH (20:51)
[2020-10-08] MEDS: Lactated Ringers 1,000 ML 125 ML IVCONT (02:00)
[2020-10-08 03:54] VITALS: BP 145/75; PULSE 60; RESP 16; TEMP 36; O2SAT 100
[2020-10-08 06:05] LABS: MANUAL DIFF FLAG NO
[2020-10-08 06:11] LABS: Basophils Percent Auto 0.3 % (0-2); Eosinophils Percent Auto 0.1 % (0-4); Hematocrit 33.7 % (37-47); Hemoglobin 11.1 g/dl (12.0-16.0); Imm Gran Abs Auto 0.04 X10*3/uL (0.00-0.03); Imm Gran Pct Auto 0.3 % (0.0-0.4); Lymphocytes Absolute Auto 3.3 X10*3/uL (1.2-4.9); Lymphocytes Percent Auto 20.5 % (20-40); Mean Corpuscular HGB Conc 32.9 g/dl (31.0-35.0); Mean Corpuscular Hemoglobin 29.4 pg (27.0-33.0); Mean Corpuscular Volume 89.2 fL (80-98); Mean Platelet Volume 10.6 fL (9.4-12.3); Monocytes Percent Auto 6.5 % (2-11); Neutrophils Absolute Auto 11.5 X10*3/uL (2.0-8.3); Neutrophils Percent Auto 72.3 % (45-73); Platelet Count 358 X10*3/uL (160-400); Red Blood Count 3.78 X10*6/uL (4.20-5.50); Red Cell Distribution Width 15.4 % (11.0-16.0); White Blood Count 15.9 X10*3/uL (4.8-10.8)
[2020-10-08 06:34] LABS: Anion Gap 11 (12-20); Blood Urea Nitrogen 6 mg/dL (9-16); Calcium 9.1 mg/dL (8.4-10.2); Carbon Dioxide 26 mmol/L (22-29); Chloride 106 mmol/L (96-108); Creatinine Clr Calc Pharmacy 140.9; Estimated Glomerular Filt Rate > 60; Glucose Random 78 mg/dL (60-115); Potassium 4.2 mmol/L (3.3-5.1); Sodium 139 mmol/L (135-145)
[2020-10-08 08:00] VITALS: BP 142/75; PULSE 61; RESP 18; TEMP 36.2; O2SAT 100
--- NOTE | 2020-10-08 08:52 | MHC.CM.PN ---
nurse rn long term care note electronic medical record reviewed,met with her and her mother patient will be discharged home today with no services discharge plan home with no services pcp patient instructed to call pcp for,post surgical intervention and hospitla discharge for follow up transportation family surgical follow up s/p bariatric surgery per discharge instructions
--- NOTE | 2020-10-08 09:36 | PM.PNGS ---
Subjective Subjective Date of Service: 10/08/20 Interval history: Pod #1 s/p lap sleeve gastrectomy and hiatal hernia repair.?? Doing well.? Tolerating stage 3 diet, ambulating in hallway.? Pain well controlled.? Denies nausea or vomiting.? Vitals and labs reviewed and are within limit for post op day 1.? On exam, patient is well appearing, abdomen is soft, nd, mild appropriate incisional tenderness.? Incisions c/d/I with dermabond in place.? Plan: d/c home today.? Follow up with me in 2 weeks Physical Exam Vital Signs: Vital Signs: Last Vital Signs Temp 97.2 F 10/08/20 08:00 Pulse 61 10/08/20 08:00 Resp 18 10/08/20 08:00 BP 142/75 H 10/08/20 08:00 Pulse Ox 100 10/08/20 08:00 Body Mass Index 46.0 Const: General: cooperative, healthy appearing, comfortable and no acute distress GI: Other: Soft nondistended mild appropriate incisional tenderness. Incisions are clean dry intact with Dermabond in place. There is no erythema or drainage. Extrem: Other: Warm well-perfused without edema or tenderness to palpation. Procedures Date of Service Date of Service: 10/08/20 Progress Note: A&P Assessment and plan (1) History of repair of hiatal hernia: Status: Acute Assessment and Plan: This is a 24-year-old lady on postoperative day 1. Status post laparoscopic sleeve gastrectomy and hiatal hernia repair doing well. Patient will be discharged home to follow up with me in 2 weeks time frame. (2) S/P laparoscopic sleeve gastrectomy: Status: Acute Fall Risk Details Current Medications: Current Medications Generic Name Dose Route Start Last Admin Trade Name Freq PRN Reason Stop Dose Admin Hydromorphone HCl 0.25 mg 10/07/20 10:02 Hydromorphone Hcl 0.5 Mg/0.5 Ml Syringe IVPUSH Q4H PRN Pain, Severe (Pain Scale 7-10) Acetaminophen 1,000 mg in 100 mls @ 16.7 mls/hr 10/07/20 10:15 10/08/20 03:07 Ofirmev IV 16.7 mls/hr .Q6H KAYCE Administration Metoclopramide HCl 10 mg 10/07/20 10:02 10/07/20 13:57 Metoclopramide Hcl 10 Mg/2 Ml Vial IVPUSH 10 mg Q6H PRN Administration Nausea Ondansetron HCl 4 mg 10/07/20 10:15 10/08/20 02:00 Ondansetron Hcl 4 Mg/2 Ml Vial IVPUSH 4 mg Q8H KAYCE Administration Sodium Chloride 3 ml 10/07/20 16:00 10/08/20 07:46 0.9 % Sodium Chloride Flush 3 Ml Syringe IVFLUSH Not Given QSHIFT KAYCE Time Spent With Patient Time: Total time spent is greater than 50% in coordination of care (as documented) at patient's floor/unit and/or counseling patient: Time with patient: less than 15 minutes Quality Stroke Does the patient have a stroke diagnosis?: No VTE Prior VTE?: No VTE Risk Level:: Surgical - moderate VTE Device Contraindication: N/A - Device Ordered VTE Drug Contraindication: Treatment Not Indicated
--- NOTE | 2020-10-08 15:51 | HO.POSTANES ---
Post Anesthesia Evaluation Post Anesthesia Evaluation Vital Signs: Vital Signs Temp Pulse Resp BP Pulse Ox 10/08/20 08:00 97.2 F 61 18 142/75 H 100 10/08/20 03:54 96.8 F 60 16 145/75 H 100 Anesthesia: General Endotracheal-GETA Mental Status: Awake Pain Control: Satisfactory Nausea/Vomiting: None Hydration: Adequate Anesthesia-Related Issues: No Anes. Related Issues
== END 2020-10-08 09:42 | disposition home or self-care (01) | DRG 621 ==
LOC: HO.SSSA 10:11 → HO.S3 10:25
PROVIDERS: Nurse Practitioner; Physician Assistant; Admitting Provider Surgery; PCP Internal Medicine; Visit Provider Surgery
PROC: 0DB64Z3 Excision of Stomach, Percutaneous Endoscopic Approach, Vertical (ICD-10-PCS; CPT 43845; principal; 2020-10-07 08:10)
DX: E66.01 Morbid (severe) obesity due to excess calories (principal); I10 Essential (primary) hypertension; K44.9 Diaphragmatic hernia without obstruction or gangrene; Z20.822 Contact with and (suspected) exposure to COVID-19; Z68.42 Body mass index [BMI] 45.0-49.9, adult; Z79.899 Other long term (current) drug therapy
CPT/HCPCS: 36415; 80048; 81001; 81025; 82040; 85025; 85610; 85730; 86850; 86900; 86901; 87635; 88307; 88342; 93005; 99024; C1776; J0131; J1100; J1170; J2250; J2370; J2405; J2550; J2765; J3010

== ENCOUNTER 2020-10-11 14:11 | Emergency (ER) | payer OTHER, SELFPAY | END 2020-10-11 17:20 | disposition left against medical advice (07) | PROVIDERS: Emergency Provider Emergency Medicine; PCP Internal Medicine | DX: M79.606 Pain in leg, unspecified (principal) ==

== ENCOUNTER → 2020-10-13 11:28 | Outpatient (BNVA) | payer OTHER, SELFPAY | PROVIDERS: PCP Internal Medicine; Visit Provider Surgery ==

== ENCOUNTER 2020-10-13 12:44 | Outpatient (REF) | payer OTHER, SELFPAY ==
--- NOTE | ~2020-10-13 | US_ITS ---
EXAMINATION: US VENOUS ULTRASOUND WITH DOPPLER LOWER EXTREMITY, BILATERAL CLINICAL INFORMATION: Pain and swelling COMPARISON: None TECHNIQUE: Ultrasound of the deep veins is performed from the hip to the calf with compression sonography and color and pulse Doppler assessment. Spectral analysis with color-flow imaging is performed. FINDINGS: RIGHT: There is normal venous compression and respiratory variation and augmented flow. The visualized common femoral vein, superficial femoral vein, profunda femoral vein, popliteal vein, and the trifurcation region shows no evidence of deep venous thrombosis. There is no significant popliteal fossa cyst. LEFT: There is normal venous compression and respiratory variation and augmented flow. The visualized common femoral vein, superficial femoral vein, profunda femoral vein, popliteal vein, and the trifurcation region shows no evidence of deep venous thrombosis. There is no significant popliteal fossa cyst. If the patient's symptoms persist, followup ultrasound in 5 days 7 days might be of value to exclude proximal propagation from a non-visualized calf vein. US/US venous duplex LE BI IMPRESSION: No DVT demonstrated in the bilateral lower extremity.
== END 2020-10-13 12:45 | disposition home or self-care (01) ==
LOC: HO.US 12:44
PROVIDERS: Visit Provider Surgery
DX: M79.669 Pain in unspecified lower leg (principal); Z98.84 Bariatric surgery status
CPT/HCPCS: 93970

== ENCOUNTER → 2020-10-19 08:10 | Outpatient (BNVA) | payer OTHER, SELFPAY | PROVIDERS: PCP Internal Medicine; Visit Provider Dietitian, Registered | DX: E66.01 Morbid (severe) obesity due to excess calories (principal); Z98.84 Bariatric surgery status | CPT/HCPCS: 97803 ==

== ENCOUNTER → 2020-11-04 09:30 | Outpatient (BNVA) | payer OTHER, SELFPAY | PROVIDERS: PCP Internal Medicine; Visit Provider Physician Assistant ==

== ENCOUNTER → 2020-11-12 15:01 | Outpatient (BNVA) | payer OTHER, SELFPAY | PROVIDERS: PCP Internal Medicine; Visit Provider Surgery ==

== ENCOUNTER 2020-11-20 14:18 | Outpatient (REF) | payer OTHER, SELFPAY ==
[2020-11-20 15:22] LABS: Alanine Aminotransferase 78 U/L (0-31); Albumin Level 4.3 g/dL (3.5-5.0); Alkaline Phosphatase 71 U/L (39-117); Anion Gap 19 (12-20); Aspartate Amino Transferase 30 U/L (5-31); Bilirubin Total 0.8 mg/dL (0.0-1.0); Blood Urea Nitrogen 8 mg/dL (9-16); Carbon Dioxide 23 mmol/L (22-29); Chloride 103 mmol/L (96-108); Estimated Glomerular Filt Rate > 60; Glucose Random 89 mg/dL (60-115); Potassium 3.4 mmol/L (3.3-5.1); Sodium 142 mmol/L (135-145)
== END 2020-11-20 14:19 | disposition home or self-care (01) ==
LOC: HO.LAB 14:18
PROVIDERS: PCP Internal Medicine; Visit Provider Physician Assistant Surgical
DX: E66.01 Morbid (severe) obesity due to excess calories (principal); R11.10 Vomiting, unspecified; Z98.84 Bariatric surgery status
CPT/HCPCS: 36415; 80053

== ENCOUNTER → 2021-01-01 15:55 | Outpatient (BNVA) | payer OTHER, SELFPAY | PROVIDERS: PCP Internal Medicine; Visit Provider Physician Assistant Surgical ==

== ENCOUNTER 2021-01-01 16:47 | Emergency (ER) | payer OTHER, SELFPAY ==
--- NOTE | ~2021-01-01 | XR_ITS ---
EXAMINATION: XR ABDOMEN KUB CLINICAL INDICATION: Constipation COMPARISON: None TECHNIQUE: AP view of the abdomen. FINDINGS: The bowel gas pattern is nonobstructive. Suture line is present in the epigastric region. Relatively mild volume of stool is noted. Small calcification in the left pelvis is statistically favored to represent a phlebolith given the clinical history. No acute osseous findings are seen. XR/XR KUB IMPRESSION: Relatively mild volume of stool. Nonobstructive bowel gas pattern.
--- NOTE | 2021-01-01 16:52 | ECG_ITS ---
Test Reason : rapid heart beat Blood Pressure : / mmHG Vent. Rate : 103 BPM Atrial Rate : 103 BPM P-R Int : 134 ms QRS Dur : 076 ms QT Int : 332 ms P-R-T Axes : 069 048 003 degrees QTc Int : 434 ms Sinus tachycardia Nonspecific ST abnormality Inferior leads Abnormal ECG Heart rate has increased Nonspecific ST abnormality is new Referred By: Generic ED Physician Electronically Signed By:MEKHI RIVERS MD
[2021-01-01 19:22] VITALS: BP 154/124; PULSE 118; RESP 20; TEMP 36.9; O2SAT 99; BMI 32.5
[2021-01-01 20:00] VITALS: BP 154/124; PULSE 101; RESP 13; O2SAT 99
[2021-01-01 21:44] LABS: MANUAL DIFF FLAG NO
[2021-01-01 21:45] LABS: Basophils Percent Auto 0.3 % (0-2); Eosinophils Absolute Auto 0.1 X10*3/uL (0.0-0.4); Eosinophils Percent Auto 0.8 % (0-4); Hematocrit 45.1 % (37-47); Hemoglobin 15.3 g/dl (12.0-16.0); Imm Gran Abs Auto 0.03 X10*3/uL (0.00-0.03); Imm Gran Pct Auto 0.3 % (0.0-0.4); Lymphocytes Absolute Auto 2.3 X10*3/uL (1.2-4.9); Lymphocytes Percent Auto 22.6 % (20-40); Mean Corpuscular HGB Conc 33.9 g/dl (31.0-35.0); Mean Corpuscular Hemoglobin 30.8 pg (27.0-33.0); Mean Corpuscular Volume 90.7 fL (80-98); Mean Platelet Volume 10.4 fL (9.4-12.3); Monocytes Absolute Auto 0.7 X10*3/uL (0.1-1.2); Monocytes Percent Auto 6.6 % (2-11); Neutrophils Absolute Auto 7.2 X10*3/uL (2.0-8.3); Neutrophils Percent Auto 69.4 % (45-73); Platelet Count 292 X10*3/uL (160-400); Red Blood Count 4.97 X10*6/uL (4.20-5.50); Red Cell Distribution Width 15.4 % (11.0-16.0); White Blood Count 10.4 X10*3/uL (4.8-10.8)
[2021-01-01 22:29] LABS: Alanine Aminotransferase 64 U/L (0-31); Albumin Level 4.2 g/dL (3.5-5.0); Alkaline Phosphatase 65 U/L (39-117); Anion Gap 21 (12-20); Aspartate Amino Transferase 26 U/L (5-31); Bilirubin Direct 0.5 mg/dL (0.0-0.5); Blood Urea Nitrogen 9 mg/dL (9-16); Calcium 9.8 mg/dL (8.4-10.2); Carbon Dioxide 24 mmol/L (22-29); Chloride 98 mmol/L (96-108); Creatinine Clr Calc Pharmacy 122.8; Estimated Glomerular Filt Rate > 60; Glucose Random 89 mg/dL (60-115); Potassium 3.3 mmol/L (3.3-5.1); Sodium 140 mmol/L (135-145); Total Protein 7.7 g/dL (6.5-8.0)
[2021-01-01 22:46] VITALS: BP 150/109; PULSE 94; RESP 18; TEMP 37; O2SAT 97
[2021-01-01 23:15] LABS: Lipase 33 U/L (8-78)
--- NOTE | 2021-01-01 23:25 | ED.GENADULT ---
HPI - General Adult General Chief complaint: Arrhythmia/Palpitations <KRYSTLE Zhang - Last Filed: 01/02/21 02:02> Stated complaint: RAPID HEART BEAT <KRYSTLE Zhang Last Filed: 01/02/21 02:02> Time Seen by Provider: 01/01/21 17:08 <KRYSTLE Zhang Last Filed: 01/02/21 02:02> Source: patient <KRYSTLE Zhang Last Filed: 01/02/21 02:02> Mode of arrival: ambulatory <KRYSTLE Zhang Last Filed: 01/02/21 02:02> History of Present Illness HPI narrative: 25-year-old female with a past medical history of adjustment disorder, hiatal hernia, HTN, s/p laparoscopic cholecystectomy and gastric sleeve on 10/07/2020 sent to ED by bariatric surgery for persistent nausea, vomiting, and generalized fatigue/weakness with feeling dehydrated since surgery. Reports 2-4 episodes of emesis daily. Also reports lightheadedness, occasional exertional dyspnea, and constipation Denies abdominal pain, diarrhea, fever, chills, CP, SOB at present, LE edema. Per chart review patient had abdominal CT at [facility] 1 month ago that was unremarkable, scheduled for upper endoscopy next week to rule out esophagitis or stricture <KRYSTLE Zhang Last Filed: 01/02/21 02:02> Related Data Home medications: Home Medications Medication Instructions Recorded Confirmed cetirizine 10 mg tablet (Zyrtec) 10 mg PO DAILY PRN 07/28/20 11/12/20 Previous Rx's Medication Instructions Recorded pantoprazole 40 mg tablet,delayed 40 mg PO DAILY #30 tab 11/20/20 release sucralfate 100 mg/mL oral 10 ml PO QID 30 Days #1200 ml 11/20/20 suspension (Carafate) <KRYSTLE Zhang Last Filed: 01/02/21 02:02> Allergies/adverse reactions: Allergies Allergy/AdvReac Type Severity Reaction Status Date / Time Latex, Natural Rubber Allergy Severe Rash Verified 01/01/21 16:09 <KRYSTLE Zhang Last Filed: 01/02/21 02:02> Review of Systems Review of Systems: Constitutional: No Weight loss, No Fever, No Chills, +Fatigue, + Malaise ENT/Mouth: No Ear Pain, No Nasal Congestion, No Sinus Pain, No sore throat, No Rhinorrhea, No Swallowing Difficulty Eyes: No Eye Pain, No Swelling, No Redness Cardiovascular: No Chest Pain, No SOB, + Dyspnea on Exertion, No Orthopnea, No Edema, No Palpitations Respiratory: No Cough, No Dyspnea Gastrointestinal: + Nausea, + Vomiting, No Diarrhea, + Constipation, No Abdominal pain Genitourinary: No Dysuria, No Urinary Frequency, No Hematuria,No Flank Pain Musculoskeletal: No joint pain, No Myalgias, No Joint Swelling Skin: No Skin Lesions, No rash Neuro: + Weakness, No Numbness, No Paresthesias, No Loss of Consciousness, + lightheadedness, No Headache <KRYSTLE Zhang - Last Filed: 01/02/21 02:02> Yes all other systems are reviewed and are negative <KRYSTLE Zhang - Last Filed: 01/02/21 02:02> Neurologic: Denies Abnormal speech present <KRYSTLE Zhang - Last Filed: 01/02/21 02:02> [facility] Past Medical History Attestation statement: The following information was validated with the patient. <KRYSTLE Zhang - Last Filed: 01/02/21 02:02> Medical History: Medical History Adjustment disorder, unspecified BMI 45.0-49.9, adult BMI 50.0-59.9, adult Hiatal hernia HTN (hypertension) Pre-op evaluation SOB (shortness of breath) Vitamin A deficiency Vitamin D deficiency <KRYSTLE Zhang - Last Filed: 01/02/21 02:02> Surgical History: Surgical History History of bunionectomy History of repair of hiatal hernia S/P laparoscopic cholecystectomy S/P laparoscopic sleeve gastrectomy <KRYSTLE Zhang - Last Filed: 01/02/21 02:02> Family History Family History: Family History Mother No problems noted. Father No problems noted. Brother No problems noted. Brother No problems noted. Sister Obese Asthma Sister No problems noted. <KRYSTLE Zhang - Last Filed: 01/02/21 02:02> Social History Social History: Social History Are you a primary director of patient care to a significant other at home: No Do you presently have visiting nurse or other home services: No Alcohol intake: never Patient Tobacco Use Status: Never used Tobacco Use of substances other than those prescribed or required for medical reasons: No Advance Directives: No Advance Directives Information Provided: Yes service: No Current occupational status: employed <KRYSTLE Zhang - Last Filed: 01/02/21 02:02> Physical Exam Vital Signs: Vital Signs: Last Vital Signs Temp 98.4 F 01/02/21 00:00 Pulse 107 H 01/02/21 02:00 Resp 13 01/02/21 02:00 BP 164/100 H 01/02/21 02:00 Pulse Ox 99 01/02/21 02:00 Body Mass Index 32.5 <KRYSTLE Zhang - Last Filed: 01/02/21 02:02> Vital Signs: Last Vital Signs Temp 98.4 F 01/02/21 00:00 Pulse 107 H 01/02/21 02:00 Resp 13 01/02/21 02:00 BP 164/100 H 01/02/21 02:00 Pulse Ox 99 01/02/21 02:00 Body Mass Index 32.5 <Andreea Prasad MD - Last Filed: 01/02/21 03:34> Const: General: cooperative, healthy appearing and no acute distress <KRYSTLE Zhang - Last Filed: 01/02/21 02:02> Orientation/consciousness: patient oriented x3 <KRYSTLE Zhang - Last Filed: 01/02/21 02:02> Limitations: no limitations <KRYSTLE Zhang - Last Filed: 01/02/21 02:02> HENMT: Head: Yes normal to inspection <KRYSTLE Zhang - Last Filed: 01/02/21 02:02> Ears: hearing grossly normal bilaterally <KRYSTLE Zhang - Last Filed: 01/02/21 02:02> General nose exam: Normal external nose present <KRYSTLE Zhang - Last Filed: 01/02/21 02:02> Face and sinus: Yes normal facial exam <Delilah Buster [place] - Last Filed: 01/02/21 02:02> Eyes: General: appearance normal, both eyes and all related structures <Delilah Buster [place] - Last Filed: 01/02/21 02:02> EOM: EOMs intact bilaterally <Delilah Buster [facility] Last Filed: 01/02/21 02:02> Neck: Neck: Yes normal visual inspection and Yes no meningeal signs <Delilah Goins [place] - Last Filed: 01/02/21 02:02> Resp: Effort & Inspection: normal respiratory effort <Delilahleslie Goins [facility] Last Filed: 01/02/21 02:02> Auscultation: clear to auscultation bilaterally, no rales, no rhonchi and no wheezes <Delilah Buster [place] - Last Filed: 01/02/21 02:02> Cardio: Rate: regular rate and tachycardic <Delilah Goins [place] - Last Filed: 01/02/21 02:02> Heart sounds: S1 normal heart sound present and S2 normal heart sound present <Delilah Buster [place] - Last Filed: 01/02/21 02:02> GI: Inspection: Yes normal to inspection <Delilah Buster [place] - Last Filed: 01/02/21 02:02> Palpation (GI): Soft to palpation, nontender, no guarding and not rigid <Delilah Buster [place] - Last Filed: 01/02/21 02:02> Skin: Rashes: no rashes <Delilah Goins [place] - Last Filed: 01/02/21 02:02> Wounds: no wounds <Delilah Buster [place] - Last Filed: 01/02/21 02:02> Neuro: General: patient oriented x3, tone normal, moves all extremities, no meningeal signs and no focal motor deficits <Delilah Goins [place] - Last Filed: 01/02/21 02:02> Cognition (Neuro): normal cognition <Delilah Goins [facility] Last Filed: 01/02/21 02:02> Speech: No Abnormal speech present <Delilah Goins [place] - Last Filed: 01/02/21 02:02> Gait exam (Neuro): Normal gait present <KRYSTLE Zhang - Last Filed: 01/02/21 02:02> Extrem: General: Yes normal to inspection, Yes no pedal edema and Yes no calf tenderness <KRYSTLE Zhang - Last Filed: 01/02/21 02:02> Course Course Course Narrative: -0023--no leukocytosis. H&H stable. Initial troponin 16.5 >will obtain 3 hour repeat. ALT acute on chronically elevated -D-dimer negative. TSH WNL -Case d/w Dr. Prasad will obtain lactic, give 50mg of Hydroxyzine and reassess BP/heart rate -0127--repeat BP 165/106. Lactic acid 1.4 -bladder scan which 353 cc -0200--ED care transferred to Dr. Prasad pending repeat troponin, KUB, UA, & BP control/re-evaluation <KRYSTLE Zhang - Last Filed: 01/02/21 02:02> Reevaluation(s) Reevaluation #1: This patient was signed out to me for further follow-up regarding urinalysis, KUB, troponin level. On review of all investigations there are no acute findings in high sensitivity troponin is noted to be flat. On evaluation of urinalysis and comparison to prior taken in the context of the elevated blood pressure this does seem to be suggestive of a possible nephritis. This may be exacerbated by patient's episodes of nausea, vomiting. All results and findings were discussed with the patient at bedside to include recommendations for follow-up with her primary care provider as well as her bariatric surgeon on Monday morning and recommended to discuss possible involvement of Nephrology regarding blood pressure and urinalysis findings. <Andreea Prasad MD - Last Filed: 01/02/21 03:34> Medical Decision Making [facility] Narrative Medical decision making narrative: 25-year-old female with a past medical history of adjustment disorder, hiatal hernia, HTN, s/p laparoscopic cholecystectomy and gastric sleeve on 10/07/2020 sent to ED by bariatric surgery for persistent nausea, vomiting, and generalized fatigue/weakness with feeling dehydrated since surgery. On exam hypertensive, tachycardic, NAD/nontoxic appearing, abdomen soft/nontender. Exam nonfocal. Concern for dehydration vs metabolic abnormalities vs ? PE although symptoms atypical. Lower concern for SBO with abdomen soft/nontender. Low concern for infectious etiology at this time. Symptoms atypical for ACS Plan: EKG, labs, KUB, IVF, symptomatic treatment, p.o. challenge, re-evaluate <KRYSTLE Zhang - Last Filed: 01/02/21 02:02> Lab Data Result diagrams: : 01/01/21 21:38 01/01/21 21:58 <KRYSTLE Zhang - Last Filed: 01/02/21 02:02> Labs: Lab Results 01/01/21 01/01/21 01/01/21 Range/Units 21:38 21:38 21:58 WBC 10.4 (4.8-10.8) X10*3/uL RBC 4.97 D (4.20-5.50) X10*6/uL Hgb 15.3 D (12.0-16.0) g/dl Hct 45.1 D (37-47) % MCV 90.7 (80-98) fL MCH 30.8 (27.0-33.0) pg MCHC 33.9 (31.0-35.0) g/dl RDW 15.4 (11.0-16.0) % Plt Count 292 (160-400) X10*3/uL MPV 10.4 (9.4-12.3) fL Immature Gran % (Auto) 0.3 (0.0-0.4) % Neut % (Auto) 69.4 (45-73) % Lymph % (Auto) 22.6 (20-40) % [place] % (Auto) 6.6 (2-11) % Eos % (Auto) 0.8 (0-4) % Baso % (Auto) 0.3 (0-2) % Lymph # (Auto) 2.3 (1.2-4.9) X10*3/uL [place] # (Auto) 0.7 (0.1-1.2) X10*3/uL Eos # (Auto) 0.1 (0.0-0.4) X10*3/uL Baso # (Auto) 0.0 (0.0-0.2) X10*3/uL Abs Immat Gran (auto) 0.03 (0.00-0.03) X10*3/uL Absolute Neuts (auto) 7.2 (2.0-8.3) X10*3/uL Absolute Nucleated RBC 0.000 (0.0-0.012) X10*3/uL Nucleated RBC % (auto) 0.0 (0.0-0.2) /100WBC D-Dimer NG/ML Sodium 140 (135-145) mmol/L Potassium 3.3 (3.3-5.1) mmol/L Chloride 98 (96-108) mmol/L Carbon Dioxide 24 (22-29) mmol/L Anion Gap 21 H (12-20) BUN 9 (9-16) mg/dL Creatinine 0.71 (0.5-1.4) mg/dL Estim Creat Clear Calc 122.8 Estimated GFR > 60 Random Glucose 89 (60-115) mg/dL Lactic Acid (0.5-2.0) mmol/L Calcium 9.8 (8.4-10.2) mg/dL Magnesium 2.0 (1.6-2.6) mg/dL Total Bilirubin 1.0 (0.0-1.0) mg/dL Direct Bilirubin 0.5 (0.0-0.5) mg/dL AST 26 (5-31) U/L ALT 64 H (0-31) U/L Alkaline Phosphatase 65 (39-117) U/L Troponin I High Sens 16.5 (<3.5-17.0) ng/L Total Protein 7.7 (6.5-8.0) g/dL Albumin 4.2 (3.5-5.0) g/dL Lipase 33 (8-78) U/L TSH 2.24 (0.32-4.0) uIU/mL Free T4 1.31 (0.71-1.85) ng/dL Urine Color Urine Appearance Urine pH (5.0-8.0) Ur Specific [place] (1.005-1.025) Urine Protein (NEG-TRACE) MG/DL Urine Glucose (UA) (NEG) MG/DL Urine Ketones (NEG) MG/DL Urine Blood (NEG) Urine Nitrite (NEG) Ur Leukocyte Esterase (NEG) Urine RBC (0) /HPF Urine WBC (0-4) /HPF Ur Squamous Epith Cells /LPF Calcium Oxalate Crystal /LPF Urine Bacteria /LPF Urine Mucus /LPF 01/01/21 01/02/2121 Range/Units 23:44 01:01 02:01 WBC (4.8-10.8) X10*3/uL RBC (4.20-5.50) X10*6/uL Hgb (12.0-16.0) g/dl Hct (37-47) % MCV (80-98) fL MCH (27.0-33.0) pg MCHC (31.0-35.0) g/dl RDW (11.0-16.0) % Plt Count (160-400) X10*3/uL MPV (9.4-12.3) fL Immature Gran % (Auto) (0.0-0.4) % Neut % (Auto) (45-73) % Lymph % (Auto) (20-40) % [place] % (Auto) (2-11) % Eos % (Auto) (0-4) % Baso % (Auto) (0-2) % Lymph # (Auto) (1.2-4.9) X10*3/uL [place] # (Auto) (0.1-1.2) X10*3/uL Eos # (Auto) (0.0-0.4) X10*3/uL Baso # (Auto) (0.0-0.2) X10*3/uL Abs Immat Gran (auto) (0.00-0.03) X10*3/uL Absolute Neuts (auto) (2.0-8.3) X10*3/uL Absolute Nucleated RBC (0.0-0.012) X10*3/uL Nucleated RBC % (auto) (0.0-0.2) /100WBC D-Dimer < 200 NG/ML Sodium (135-145) mmol/L Potassium (3.3-5.1) mmol/L Chloride (96-108) mmol/L Carbon Dioxide (22-29) mmol/L Anion Gap (12-20) BUN (9-16) mg/dL Creatinine (0.5-1.4) mg/dL Estim Creat Clear Calc Estimated GFR Random Glucose (60-115) mg/dL Lactic Acid 1.4 (0.5-2.0) mmol/L Calcium (8.4-10.2) mg/dL Magnesium (1.6-2.6) mg/dL Total Bilirubin (0.0-1.0) mg/dL Direct Bilirubin (0.0-0.5) mg/dL AST (5-31) U/L ALT (0-31) U/L Alkaline Phosphatase (39-117) U/L Troponin I High Sens (<3.5-17.0) ng/L Total Protein (6.5-8.0) g/dL Albumin (3.5-5.0) g/dL Lipase (8-78) U/L TSH (0.32-4.0) uIU/mL Free T4 (0.71-1.85) ng/dL Urine Color DK YELLOW Urine Appearance CLOUDY Urine pH 7.0 (5.0-8.0) Ur Specific [place] 1.020 (1.005-1.025) Urine Protein 2+ H (NEG-TRACE) MG/DL Urine Glucose (UA) NEG (NEG) MG/DL Urine Ketones 40 (NEG) MG/DL Urine Blood 3+ H (NEG) Urine Nitrite NEG (NEG) Ur Leukocyte Esterase NEG (NEG) Urine RBC TNTC H (0) /HPF Urine WBC 5-9 H (0-4) /HPF Ur Squamous Epith Cells 1+ /LPF Calcium Oxalate Crystal 1+ /LPF Urine Bacteria TRACE /LPF Urine Mucus 2+ /LPF 01/02/ Range/Units 02:35 WBC (4.8-10.8) X10*3/uL RBC (4.20-5.50) X10*6/uL Hgb (12.0-16.0) g/dl Hct (37-47) % MCV (80-98) fL MCH (27.0-33.0) pg MCHC (31.0-35.0) g/dl RDW (11.0-16.0) % Plt Count (160-400) X10*3/uL MPV (9.4-12.3) fL Immature Gran % (Auto) (0.0-0.4) % Neut % (Auto) (45-73) % Lymph % (Auto) (20-40) % [place] % (Auto) (2-11) % Eos % (Auto) (0-4) % Baso % (Auto) (0-2) % Lymph # (Auto) (1.2-4.9) X10*3/uL [place] # (Auto) (0.1-1.2) X10*3/uL Eos # (Auto) (0.0-0.4) X10*3/uL Baso # (Auto) (0.0-0.2) X10*3/uL Abs Immat Gran (auto) (0.00-0.03) X10*3/uL Absolute Neuts (auto) (2.0-8.3) X10*3/uL Absolute Nucleated RBC (0.0-0.012) X10*3/uL Nucleated RBC % (auto) (0.0-0.2) /100WBC D-Dimer NG/ML Sodium (135-145) mmol/L Potassium (3.3-5.1) mmol/L Chloride (96-108) mmol/L Carbon Dioxide (22-29) mmol/L Anion Gap (12-20) BUN (9-16) mg/dL Creatinine (0.5-1.4) mg/dL Estim Creat Clear Calc Estimated GFR Random Glucose (60-115) mg/dL Lactic Acid (0.5-2.0) mmol/L Calcium (8.4-10.2) mg/dL Magnesium (1.6-2.6) mg/dL Total Bilirubin (0.0-1.0) mg/dL Direct Bilirubin (0.0-0.5) mg/dL AST (5-31) U/L ALT (0-31) U/L Alkaline Phosphatase (39-117) U/L Troponin I High Sens 16.0 (<3.5-17.0) ng/L Total Protein (6.5-8.0) g/dL Albumin (3.5-5.0) g/dL Lipase (8-78) U/L TSH (0.32-4.0) uIU/mL Free T4 (0.71-1.85) ng/dL Urine Color Urine Appearance Urine pH (5.0-8.0) Ur Specific [place] (1.005-1.025) Urine Protein (NEG-TRACE) MG/DL Urine Glucose (UA) (NEG) MG/DL Urine Ketones (NEG) MG/DL Urine Blood (NEG) Urine Nitrite (NEG) Ur Leukocyte Esterase (NEG) Urine RBC (0) /HPF Urine WBC (0-4) /HPF Ur Squamous Epith Cells /LPF Calcium Oxalate Crystal /LPF Urine Bacteria /LPF Urine Mucus /LPF <KRYSTLE Zhang - Last Filed: 01/02/21 02:02> Lab Results 01/01/21 01/01/21 01/01/21 Range/Units 21:38 21:38 21:58 WBC 10.4 (4.8-10.8) X10*3/uL RBC 4.97 D (4.20-5.50) X10*6/uL Hgb 15.3 D (12.0-16.0) g/dl Hct 45.1 D (37-47) % MCV 90.7 (80-98) fL MCH 30.8 (27.0-33.0) pg MCHC 33.9 (31.0-35.0) g/dl RDW 15.4 (11.0-16.0) % Plt Count 292 (160-400) X10*3/uL MPV 10.4 (9.4-12.3) fL Immature Gran % (Auto) 0.3 (0.0-0.4) % Neut % (Auto) 69.4 (45-73) % Lymph % (Auto) 22.6 (20-40) % [place] % (Auto) 6.6 (2-11) % Eos % (Auto) 0.8 (0-4) % Baso % (Auto) 0.3 (0-2) % Lymph # (Auto) 2.3 (1.2-4.9) X10*3/uL [place] # (Auto) 0.7 (0.1-1.2) X10*3/uL Eos # (Auto) 0.1 (0.0-0.4) X10*3/uL Baso # (Auto) 0.0 (0.0-0.2) X10*3/uL Abs Immat Gran (auto) 0.03 (0.00-0.03) X10*3/uL Absolute Neuts (auto) 7.2 (2.0-8.3) X10*3/uL Absolute Nucleated RBC 0.000 (0.0-0.012) X10*3/uL Nucleated RBC % (auto) 0.0 (0.0-0.2) /100WBC D-Dimer NG/ML Sodium 140 (135-145) mmol/L Potassium 3.3 (3.3-5.1) mmol/L Chloride 98 (96-108) mmol/L Carbon Dioxide 24 (22-29) mmol/L Anion Gap 21 H (12-20) BUN 9 (9-16) mg/dL Creatinine 0.71 (0.5-1.4) mg/dL Estim Creat Clear Calc 122.8 Estimated GFR > 60 Random Glucose 89 (60-115) mg/dL Lactic Acid (0.5-2.0) mmol/L Calcium 9.8 (8.4-10.2) mg/dL Magnesium 2.0 (1.6-2.6) mg/dL Total Bilirubin 1.0 (0.0-1.0) mg/dL Direct Bilirubin 0.5 (0.0-0.5) mg/dL AST 26 (5-31) U/L ALT 64 H (0-31) U/L Alkaline Phosphatase 65 (39-117) U/L Troponin I High Sens 16.5 (<3.5-17.0) ng/L Total Protein 7.7 (6.5-8.0) g/dL Albumin 4.2 (3.5-5.0) g/dL Lipase 33 (8-78) U/L TSH 2.24 (0.32-4.0) uIU/mL Free T4 1.31 (0.71-1.85) ng/dL Urine Color Urine Appearance Urine pH (5.0-8.0) Ur Specific [place] (1.005-1.025) Urine Protein (NEG-TRACE) MG/DL Urine Glucose (UA) (NEG) MG/DL Urine Ketones (NEG) MG/DL Urine Blood (NEG) Urine Nitrite (NEG) Ur Leukocyte Esterase (NEG) Urine RBC (0) /HPF Urine WBC (0-4) /HPF Ur Squamous Epith Cells /LPF Calcium Oxalate Crystal /LPF Urine Bacteria /LPF Urine Mucus /LPF 01/01/21 01/02/21 01/02/21 Range/Units 23:44 01:01 02:01 WBC (4.8-10.8) X10*3/uL RBC (4.20-5.50) X10*6/uL Hgb (12.0-16.0) g/dl Hct (37-47) % MCV (80-98) fL MCH (27.0-33.0) pg MCHC (31.0-35.0) g/dl RDW (11.0-16.0) % Plt Count (160-400) X10*3/uL MPV (9.4-12.3) fL Immature Gran % (Auto) (0.0-0.4) % Neut % (Auto) (45-73) % Lymph % (Auto) (20-40) % [place] % (Auto) (2-11) % Eos % (Auto) (0-4) % Baso % (Auto) (0-2) % Lymph # (Auto) (1.2-4.9) X10*3/uL [place] # (Auto) (0.1-1.2) X10*3/uL Eos # (Auto) (0.0-0.4) X10*3/uL Baso # (Auto) (0.0-0.2) X10*3/uL Abs Immat Gran (auto) (0.00-0.03) X10*3/uL Absolute Neuts (auto) (2.0-8.3) X10*3/uL Absolute Nucleated RBC (0.0-0.012) X10*3/uL Nucleated RBC % (auto) (0.0-0.2) /100WBC D-Dimer < 200 NG/ML Sodium (135-145) mmol/L Potassium (3.3-5.1) mmol/L Chloride (96-108) mmol/L Carbon Dioxide (22-29) mmol/L Anion Gap (12-20) BUN (9-16) mg/dL Creatinine (0.5-1.4) mg/dL Estim Creat Clear Calc Estimated GFR Random Glucose (60-115) mg/dL Lactic Acid 1.4 (0.5-2.0) mmol/L Calcium (8.4-10.2) mg/dL Magnesium (1.6-2.6) mg/dL Total Bilirubin (0.0-1.0) mg/dL Direct Bilirubin (0.0-0.5) mg/dL AST (5-31) U/L ALT (0-31) U/L Alkaline Phosphatase (39-117) U/L Troponin I High Sens (<3.5-17.0) ng/L Total Protein (6.5-8.0) g/dL Albumin (3.5-5.0) g/dL Lipase (8-78) U/L TSH (0.32-4.0) uIU/mL Free T4 (0.71-1.85) ng/dL Urine Color DK YELLOW Urine Appearance CLOUDY Urine pH 7.0 (5.0-8.0) Ur Specific [place] 1.020 (1.005-1.025) Urine Protein 2+ H (NEG-TRACE) MG/DL Urine Glucose (UA) NEG (NEG) MG/DL Urine Ketones 40 (NEG) MG/DL Urine Blood 3+ H (NEG) Urine Nitrite NEG (NEG) Ur Leukocyte Esterase NEG (NEG) Urine RBC TNTC H (0) /HPF Urine WBC 5-9 H (0-4) /HPF Ur Squamous Epith Cells 1+ /LPF Calcium Oxalate Crystal 1+ /LPF Urine Bacteria TRACE /LPF Urine Mucus 2+ /LPF 01/02/ Range/Units 02:35 WBC (4.8-10.8) X10*3/uL RBC (4.20-5.50) X10*6/uL Hgb (12.0-16.0) g/dl Hct (37-47) % MCV (80-98) fL MCH (27.0-33.0) pg MCHC (31.0-35.0) g/dl RDW (11.0-16.0) % Plt Count (160-400) X10*3/uL MPV (9.4-12.3) fL Immature Gran % (Auto) (0.0-0.4) % Neut % (Auto) (45-73) % Lymph % (Auto) (20-40) % [place] % (Auto) (2-11) % Eos % (Auto) (0-4) % Baso % (Auto) (0-2) % Lymph # (Auto) (1.2-4.9) X10*3/uL [place] # (Auto) (0.1-1.2) X10*3/uL Eos # (Auto) (0.0-0.4) X10*3/uL Baso # (Auto) (0.0-0.2) X10*3/uL Abs Immat Gran (auto) (0.00-0.03) X10*3/uL Absolute Neuts (auto) (2.0-8.3) X10*3/uL Absolute Nucleated RBC (0.0-0.012) X10*3/uL Nucleated RBC % (auto) (0.0-0.2) /100WBC D-Dimer NG/ML Sodium (135-145) mmol/L Potassium (3.3-5.1) mmol/L Chloride (96-108) mmol/L Carbon Dioxide (22-29) mmol/L Anion Gap (12-20) BUN (9-16) mg/dL Creatinine (0.5-1.4) mg/dL Estim Creat Clear Calc Estimated GFR Random Glucose (60-115) mg/dL Lactic Acid (0.5-2.0) mmol/L Calcium (8.4-10.2) mg/dL Magnesium (1.6-2.6) mg/dL Total Bilirubin (0.0-1.0) mg/dL Direct Bilirubin (0.0-0.5) mg/dL AST (5-31) U/L ALT (0-31) U/L Alkaline Phosphatase (39-117) U/L Troponin I High Sens 16.0 (<3.5-17.0) ng/L Total Protein (6.5-8.0) g/dL Albumin (3.5-5.0) g/dL Lipase (8-78) U/L TSH (0.32-4.0) uIU/mL Free T4 (0.71-1.85) ng/dL Urine Color Urine Appearance Urine pH (5.0-8.0) Ur Specific [place] (1.005-1.025) Urine Protein (NEG-TRACE) MG/DL Urine Glucose (UA) (NEG) MG/DL Urine Ketones (NEG) MG/DL Urine Blood (NEG) Urine Nitrite (NEG) Ur Leukocyte Esterase (NEG) Urine RBC (0) /HPF Urine WBC (0-4) /HPF Ur Squamous Epith Cells /LPF Calcium Oxalate Crystal /LPF Urine Bacteria /LPF Urine Mucus /LPF <Andreea Prasad MD - Last Filed: 01/02/21 03:34> ECG Data Attestation: I personally reviewed and interpreted this ECG as follows: <KRYSTLE Zhang - Last Filed: 01/02/21 02:02> Interpretation: EKG sinus tachycardia at a rate of 103. Peer interval 134. QTC 434. No STEMI/nonischemic <KRYSTLE Zhang - Last Filed: 01/02/21 02:02> Discharge Plan Discharge Clinical Impression: Hypertension, Nausea & vomiting, Hematuria <KRYSTLE Zhang - Last Filed: 01/02/21 02:02> Patient Disposition: Home, Self-Care <KRYSTLE Zhang - Last Filed: 01/02/21 02:02> Instructions: Acute Nausea and Vomiting (ED) <KRYSTLE Zhang - Last Filed: 01/02/21 02:02> Additional Instructions: 1. Recommend following up with your primary care provider and discussing a referral to see Nephrology. 2. Recommend following up with your bariatric surgeon. Return to the ER for acute worsening of symptoms. <KRYSTLE Zhang - Last Filed: 01/02/21 02:02> Prescriptions: No Action sucralfate [Carafate] 100 mg/mL suspension 10 ml PO QID 30 Days Qty: 1200 RF: 1 pantoprazole 40 mg tablet,delayed release (DR/EC) 40 mg PO DAILY Qty: 30 RF: 6 cetirizine [Zyrtec] 10 mg tablet 10 mg PO DAILY PRNRF: 0 <KRYSTLE Zhang - Last Filed: 01/02/21 02:02> Referrals: Lesa Redd MD [Primary Care Provider] - 2 days (Please re-evaluate patient for hypertension and concomitant suggestion of nephritic findings on urinalysis. Consider nephrology evaluation.) <KRYSTLE Zhang - Last Filed: 01/02/21 02:02>
[2021-01-01 23:28] LABS: Troponin-I High Sensitivity 16.5 ng/L (<3.5-17.0)
[2021-01-01 23:35] LABS: TSH reflex Free T4 2.24 uIU/mL (0.32-4.0)
[2021-01-01 23:36] VITALS: PULSE 92; RESP 17; O2SAT 99
[2021-01-01 23:37] VITALS: BP 174/107
[2021-01-01] MEDS: 0.9 % Sodium Chloride 1,000 ML 999 ML IVCONT (23:39)
[2021-01-01] MEDS: Metoclopramide HCl 10 MG/2 ML VIAL IVPUSH (23:39)
[2021-01-01 23:59] LABS: D Dimer < 200 NG/ML
[2021-01-02] VITALS: BP 168/112; PULSE 104; RESP 16; TEMP 36.9; O2SAT 99
[2021-01-02 00:10] VITALS: PULSE 94
[2021-01-02] MEDS: Magnesium Hydrox/Alum Hydrox 30 ML ORAL.SUSP PO (00:37)
[2021-01-02] MEDS: 0.9 % Sodium Chloride 1,000 ML 999 ML IVCONT (00:37)
[2021-01-02] MEDS: hydrOXYzine HCL 50 MG TABLET PO (00:37)
[2021-01-02] MEDS: Famotidine/PF 20 MG/2 ML VIAL IVPUSH (00:37)
--- NOTE | 2021-01-02 00:45 | PC.NURSE ---
Patient vomited post administration of magnesium hydroxide. PA informed. Patient's blood pressures have been elevated with diastolic over the 100's. Administration of Atarax for bp
[2021-01-02 01:08] LABS: Free T4 (Free Thyroxine) 1.31 ng/dL (0.71-1.85)
[2021-01-02 01:25] LABS: Lactic Acid 1.4 mmol/L (0.5-2.0)
[2021-01-02 02:00] VITALS: BP 164/100; PULSE 107; RESP 13; O2SAT 99
[2021-01-02 02:09] LABS: Appearance Urine CLOUDY; Color Urine DK YELLOW; Glucose Urine UA NEG (NEG); Leukocyte Esterase Urine NEG (NEG); Nitrite Urine NEG (NEG); UACC Culture Trigger NO; Urine Blood 3+ (NEG); Urine Ketones 40 MG/DL (NEG); Urine Protein 2+ MG/DL (NEG-TRACE)
[2021-01-02 02:15] LABS: Bacteria Urine TRACE /LPF; Calcium Oxalate Crystals Urine 1+ /LPF; Mucus Urine 2+ /LPF; RBC Urine TNTC /HPF (0); Squamous Epithelial Cell Urine 1+ /LPF; UACC CULT YES
[2021-01-02 03:51] VITALS: BP 155/101; PULSE 92; RESP 14; TEMP 36.6; O2SAT 100
== END 2021-01-02 04:07 | disposition home or self-care (01) ==
PROVIDERS: Nurse Practitioner Family; Physician Assistant; Emergency Provider Student in an Organized Health Care Education/Training Program; PCP Internal Medicine
DX: I10 Essential (primary) hypertension (principal); R11.2 Nausea with vomiting, unspecified; R31.9 Hematuria, unspecified; Z98.84 Bariatric surgery status
CPT/HCPCS: 36415; 51798; 74018; 80048; 80076; 81001; 83605; 83690; 83735; 84439; 84443; 84484; 85025; 85379; 87086; 93005; 96361; 96374; 96375; 99285; J2765

== ENCOUNTER → 2021-01-07 11:24 | Day surgery (SDC) | payer OTHER, SELFPAY ==
[2021-01-06 09:54] VITALS: BMI 33.1
--- NOTE | 2021-01-06 10:35 | HO.ANESPROP2 ---
Documented by User: Lorena Blue NP 01/06/21 10:37 HPI - Anesthesia Eval Consult details Narrative: 25yo F for Upper Endoscopy s/p gastric sleeve 10/2020 [facility] Active Problems Active Problems: All Active Problems (Updated 01/03/21 @ 00:02 by Jayden Galindo) Tachycardia (Acute) Obesity (BMI 30.0-34.9) (Acute) Vomiting (Acute) Gastritis (Acute) Calf tenderness (Acute) S/P laparoscopic sleeve gastrectomy (Acute) History of repair of hiatal hernia (Acute) Hiatal hernia (Acute) Morbid obesity (Acute) Past Medical History Medical History Adjustment disorder, unspecified BMI 45.0-49.9, adult BMI 50.0-59.9, adult Hiatal hernia HTN (hypertension) Pre-op evaluation SOB (shortness of breath) Vitamin A deficiency Vitamin D deficiency Family History Family History Mother No problems noted. Father No problems noted. Brother No problems noted. Brother No problems noted. Sister Obese Asthma Sister No problems noted. Family history of problems with anesthesia: No Surgical History Surgical History History of bunionectomy History of repair of hiatal hernia S/P laparoscopic cholecystectomy S/P laparoscopic sleeve gastrectomy History of Problems with Anesthesia: No Social History Social History Are you a primary palliative care coordinator to a significant other at home: No Do you presently have visiting nurse or other home services: No Alcohol intake: never Patient Tobacco Use Status: Never used Tobacco Second Hand Smoke Exposure: No service: No Current occupational status: employed Meds Allergies Allergy/AdvReac Type Severity Reaction Status Date / Time Latex, Natural Rubber Allergy Severe Rash Verified 01/01/21 16:09 Home Medications Medication Instructions Recorded Confirmed Last Taken Type cetirizine 10 mg tablet (Zyrtec) 10 mg PO DAILY PRN 07/28/20 11/12/20 Unknown History Exam Exam Date and Time: January 06, 2021 1035 Height,Weight and Vital Signs: Height 5 ft 2.5 in Weight 83.461 kg Pertinent Lab Results Pertinent Lab Results: Laboratory Tests 01/01/21 01/01/21 21:38 21:58 WBC 10.4 Hgb 15.3 D Hct 45.1 D Plt Count 292 Sodium 140 Potassium 3.3 Chloride 98 Carbon Dioxide 24 BUN 9 Creatinine 0.71 Narrative Narrative: EKG 09/2020 Vent. Rate : 075 BPM ? ? Atrial Rate : 075 BPM ?? P-R Int : 146 ms? QRS Dur : 078 ms ? ? QT Int : 368 ms ? ? ? P-R-T Axes : 012 055 021 degrees ?? QTc Int : 410 ms ? Normal sinus rhythm Normal ECG No significant changes when compared with the previous EKG? of 25 june 2020 Assessment and Plan Assessment Anesthesia Assessment: Chart Reviewed Final Anesthetic Review Family History of Problems with Anesthesia: No History of Problems with Anesthesia: No Documented by User: Katlin Egan MD 01/07/21 13:15 HPI - Anesthesia Eval Consult details Narrative: 25yo F for Upper Endoscopy s/p gastric sleeve 10/2020 Patient here today for persistent nausea and vomiting. Was scheduled for EGD. However hypertensive with pressures up to 180s systolic with diastolic persistently in high 120s. HR 120s- 130s. Had been sent to ER with same from Dr Baker's office on 01/01/21. Received a dose of ?hydroxyzine. Since then has developed blurring of vision in Right eye for 3 days. Also apparently fell yesterday(per mother), hitting her head. Discussed with Dr Baker. Case cancelled. Patient transferred to ER after discussion with ER Physician for further evaluation. [facility] Past Medical History Medical History Adjustment disorder, unspecified BMI 45.0-49.9, adult BMI 50.0-59.9, adult Hiatal hernia HTN (hypertension) Pre-op evaluation SOB (shortness of breath) Vitamin A deficiency Vitamin D deficiency Family History Family History Mother No problems noted. Father No problems noted. Brother No problems noted. Brother No problems noted. Sister Obese Asthma Sister No problems noted. Surgical History Surgical History History of bunionectomy History of repair of hiatal hernia S/P laparoscopic cholecystectomy S/P laparoscopic sleeve gastrectomy Social History Social History Are you a primary palliative care coordinator to a significant other at home: No Do you presently have visiting nurse or other home services: No Alcohol intake: never Patient Tobacco Use Status: Never used Tobacco Second Hand Smoke Exposure: No service: No Current occupational status: employed Meds Allergies Allergy/AdvReac Type Severity Reaction Status Date / Time Latex, Natural Rubber Allergy Severe Rash Verified 01/01/21 16:09 Home Medications Medication Instructions Recorded Confirmed Last Taken Type cetirizine 10 mg tablet (Zyrtec) 10 mg PO DAILY PRN 07/28/20 11/12/20 Unknown History
[2021-01-07 12:31] VITALS: BP 150/120; PULSE 134; RESP 16; TEMP 36.2; O2SAT 98
[2021-01-07] MEDS: Lactated Ringers 1,000 ML 100 ML IVCONT (12:41)
--- NOTE | 2021-01-07 12:41 | PC.NURSE ---
patient complains of right eye blurry and double vision with no headache. onset monday of this week.
--- NOTE | 2021-01-07 12:43 | PM.OP ---
Brief Operative Note Date of Service: 01/07/21 Pre-op diagnosis: Vomiting and GERD after sleeve gastrectomy Post-op diagnosis: same Procedure: PROCEDURE DATE: 01/07/2021 PREOPERATIVE DIAGNOSIS: GERD and vomiting, s/p sleeve gastrectomy POSTOPERATIVE DIAGNOSIS: ?Same as above. 1) small hiatal hernia, 2) distal gastritis PROCEDURE: [id number] with biopsies Surgeon: ?Rajinder Baker M.D.. Ph.D. Oil Lease Broker: None ? Anesthesia: IV sedation Estimated blood loss: ?Minimal FINDINGS AND PROCEDURE: ? OPERATIVE INDICATIONS: ?The patient is a 25 year old female who underwent a laparoscopic sleeve gastrectomy by Dr. Pryor 3 months ago. The patient has been complaining since November of persistent GERD and vomiting/nausea with both liquids and solids. Based on this information I recommended an upper endoscopy to evaluate the patient's symptoms. Risks and complications of the surgery were discussed with the patient in advance particularly the possibility of perforation or bleeding that may require surgical intervention. The patient understood the risks and was in agreement with the plan. ? PROCEDURE: After informed consent was obtained by the patient, the patient was ?transferred to the Operating Room and was placed in the supine position.? After successful induction of IV sedation, a mouth block was inserted and the patient was placed in the left lateral decubitus position. An upper endoscopy was performed next, the oropharynx and esophagus appeared within the normal limits. There was a small hiatal hernia. The z-line was smooth. Two biopsies were obtained from the distal esohagus 2-3 cm proximal to the GE junction and two additional biopsies from the GE junction. The sleeve was entered and it appeared to be of normal size. There was mild gastritis at distal antrum. There was no stricture or ulcer. Biopsies were obtained from the proximal sleeve as well as the distal antrum. No significant bleeding was noted from any of the biopsy sites. The scope was then advanced into the duodenum which appeared to be normal as well. At that point the duodenum ?and the sleeve were decompressed and the scope was withdrawn from the patient's mouth. The patient extubated and was transferred in stable condition to the Recovery Room for further care. I was present and performed all steps of the procedure. There were no residents to assist with this case. Rajinder Baker M.D., Ph.D. Surgeon: Marv Baker MD Anesthesia: MAC Was an Oil Lease Broker used for this Procedure?: No Estimated blood loss (mL): 0 IV fluids (mL): 500 Urine output (mL): 0 (No Anthony to record ) Condition: stable Disposition: PACU
[2021-01-07 12:47] VITALS: BP 162/124; PULSE 124; RESP 16
--- NOTE | 2021-01-07 12:48 | PC.NURSE ---
MD MEJIA BY BEDSIDE. NEUROS INTACT. EQUAL BILATERAL HAND GRASPS.
--- NOTE | 2021-01-07 12:49 | PC.NURSE ---
NEUROS INTACT. CLEAR SPEECH. 2MM BILATERAL REACTIVE PUPILS. DENIES HEADACHE.
[2021-01-07 12:50] VITALS: BP 180/126; PULSE 124; RESP 16
[2021-01-07 12:55] VITALS: BP 166/123; PULSE 122; RESP 16
--- NOTE | 2021-01-07 13:17 | PC.NURSE ---
1303-LEFT VIA STRETCHER TO THE ER. TO PERFORMED AND SPOKE TO FOOD AND BEVERAGE ANALYST NIKUNJ TO BRING PATIENT. BEDSIDE REPORT GIVEN TO RN. RIGHT MOM STATED SHE FELL AND HIT HER HEAD YESTERDAY, BLURRED VISION STARTED PRIOR TO HITTING HER HEAD PER PATIENT.
== END | disposition home or self-care (01) ==
PROVIDERS: PCP Internal Medicine; Visit Provider Surgery
DX: R11.10 Vomiting, unspecified (principal); Z53.09 Procedure and treatment not carried out because of other contraindication; R00.0 Tachycardia, unspecified; Z98.84 Bariatric surgery status; F43.20 Adjustment disorder, unspecified; I10 Essential (primary) hypertension; E66.9 Obesity, unspecified; Z68.33 Body mass index [BMI] 33.0-33.9, adult; E50.9 Vitamin A deficiency, unspecified; E55.9 Vitamin D deficiency, unspecified; R06.02 Shortness of breath; Z90.49 Acquired absence of other specified parts of digestive tract; Z91.040 Latex allergy status; Z79.899 Other long term (current) drug therapy

== ENCOUNTER 2021-01-07 13:10 | Emergency (ER) | payer OTHER, SELFPAY ==
[2021-01-07] VITALS (8 sets, daily range): BP systolic 156–187; BP diastolic 107–126; PULSE 89–128; RESP 12–16; TEMP 36.8; O2SAT 98–100; BMI 32.5
--- NOTE | ~2021-01-07 | CT_ITS ---
EXAMINATION: CT ABDOMEN AND PELVIS WITH CONTRAST CLINICAL INFORMATION: DIZZINESS X 3 MONTHS AFTER GASTRIC SLEEVE COMPARISON: KUB March 04, 2021 TECHNIQUE: Multidetector volumetric images were obtained from the superior aspect of the liver through the pubic symphysis following administration 85 mL of Omnipaque 350 intravenous contrast. Sagittal and coronal reformatted images were obtained on the technologist's workstation. Oral contrast: Yes This CT examination was performed using dose optimization techniques as appropriate, variously including the following: *Automated exposure control *Adjustment of mA and/or kV according to patient size (this includes techniques or standardized protocols for targeted exams where dose is matched to indication/reason for exam; i.e. extremities or head) *Use of iterative reconstruction technique DLP: 1022 mGy-cm FINDINGS: LUNG BASES: The visualized lung bases are unremarkable. LIVER, GALLBLADDER, AND BILIARY TREE: The liver is normal in size, shape, and attenuation. No focal hepatic lesion or biliary ductal dilatation is present. The gallbladder is unremarkable with no evidence of radiopaque gallstones, gallbladder wall thickening, or obvious pericholecystic inflammatory changes. PANCREAS: Unremarkable. SPLEEN: Unremarkable. ADRENAL GLANDS: Unremarkable. KIDNEYS AND URETERS: The kidneys are normal in size, shape, and attenuation. No hydronephrosis, hydroureter, or calculi seen. No perinephric stranding. BLADDER: Unremarkable. GASTROINTESTINAL TRACT: Status post gastric sleeve surgery. There is no acute abnormality of the bowel. No bowel obstruction. No bowel wall thickening or edema. Small volume of scattered stool in the colon. The appendix is normal. ABDOMINAL WALL: No significant hernia is appreciated. LYMPH NODES: Normal. VASCULAR: Unremarkable. PELVIC VISCERA: Unremarkable. OSSEOUS STRUCTURES: Unremarkable. CT/CT abdomen pelvis w con IMPRESSION: Normal CT scan of the abdomen and pelvis.
--- NOTE | ~2021-01-07 | CT_ITS ---
EXAMINATION: CT HEAD/BRAIN WITHOUT CONTRAST CLINICAL INFORMATION: Dizziness for 3 months after gastric sleeve and head injury. COMPARISON: None. TECHNIQUE: CT scanning from base of skull to vertex performed without IV contrast administration. This CT examination was performed using dose optimization techniques as appropriate, variously including the following: *Automated exposure control *Adjustment of mA and/or kV according to patient size (this includes techniques or standardized protocols for targeted exams where dose is matched to indication/reason for exam; i.e. extremities or head) *Use of iterative reconstruction technique DLP: 676.81 mGy-cm. FINDINGS: The ventricles, sulci, and cisterns appear unremarkable. No abnormal extra-axial fluid collection or intracranial hemorrhage is seen. No significant mass effect or midline structure shift is evident. Visualized soft tissues and paranasal sinuses/mastoid air cells unremarkable. CT/CT cervical spine wo con IMPRESSION: No acute intracranial abnormality identified. EXAMINATION: CT OF THE CERVICAL SPINE CLINICAL INFORMATION: Dizziness for 3 months after head injury COMPARISON: None. TECHNIQUE: Thin helical images with sagittal and coronal reformats. This CT examination was performed using dose optimization techniques as appropriate, variously including the following: *Automated exposure control *Adjustment of mA and/or kV according to patient size (this includes techniques or standardized protocols for targeted exams where dose is matched to indication/reason for exam; i.e. extremities or head) *Use of iterative reconstruction technique DOSE: DLP 376.19 mGy-cm FINDINGS: The vertebral alignment is normal. The atlantoaxial and atlanto-occipital articulations are normal. No fracture. No intrinsic bony abnormality. The vertebral bodies and posterior elements are normal. The disc heights are preserved. The bony canal and neural foramina are well maintained. The surrounding soft tissues are normal. The lung apices are clear. IMPRESSION: No acute bony abnormality of the cervical spine identified.
--- NOTE | ~2021-01-07 | CT_ITS ---
EXAMINATION: CT HEAD/BRAIN WITHOUT CONTRAST CLINICAL INFORMATION: Dizziness for 3 months after gastric sleeve and head injury. COMPARISON: None. TECHNIQUE: CT scanning from base of skull to vertex performed without IV contrast administration. This CT examination was performed using dose optimization techniques as appropriate, variously including the following: *Automated exposure control *Adjustment of mA and/or kV according to patient size (this includes techniques or standardized protocols for targeted exams where dose is matched to indication/reason for exam; i.e. extremities or head) *Use of iterative reconstruction technique DLP: 676.81 mGy-cm. FINDINGS: The ventricles, sulci, and cisterns appear unremarkable. No abnormal extra-axial fluid collection or intracranial hemorrhage is seen. No significant mass effect or midline structure shift is evident. Visualized soft tissues and paranasal sinuses/mastoid air cells unremarkable. CT/CT head/brain wo con IMPRESSION: No acute intracranial abnormality identified. EXAMINATION: CT OF THE CERVICAL SPINE CLINICAL INFORMATION: Dizziness for 3 months after head injury COMPARISON: None. TECHNIQUE: Thin helical images with sagittal and coronal reformats. This CT examination was performed using dose optimization techniques as appropriate, variously including the following: *Automated exposure control *Adjustment of mA and/or kV according to patient size (this includes techniques or standardized protocols for targeted exams where dose is matched to indication/reason for exam; i.e. extremities or head) *Use of iterative reconstruction technique DOSE: DLP 376.19 mGy-cm FINDINGS: The vertebral alignment is normal. The atlantoaxial and atlanto-occipital articulations are normal. No fracture. No intrinsic bony abnormality. The vertebral bodies and posterior elements are normal. The disc heights are preserved. The bony canal and neural foramina are well maintained. The surrounding soft tissues are normal. The lung apices are clear. IMPRESSION: No acute bony abnormality of the cervical spine identified.
--- NOTE | ~2021-01-07 | CT_ITS ---
EXAMINATION: CT ANGIOGRAM OF THE CHEST WITH AND WITHOUT CONTRAST (CT PULMONARY ANGIOGRAM FOR PE) CLINICAL INFORMATION: Reason for Exam pt c dizziness x 3 months after gastric sleeve COMPARISON: None TECHNIQUE: Prior to contrast administration, noncontrast localization images were obtained. Subsequently, multidetector volumetric imaging was performed from the thoracic inlet to below the diaphragms following the administration of 85 mL Omnipaque 350 intravenous contrast. Sagittal, coronal, and MIP oblique sagittal reformatted images were obtained on the CT workstation, uploaded to PACS, and reviewed. CT abdomen and pelvis also performed, described in separate report. This CT examination was performed using dose optimization techniques as appropriate, variously including the following: *Automated exposure control *Adjustment of mA and/or kV according to patient size (this includes techniques or standardized protocols for targeted exams where dose is matched to indication/reason for exam; i.e. extremities or head) *Use of iterative reconstruction technique Total exam dose-length product 273 mGy-cm FINDINGS: QUALITY OF STUDY/CONTRAST BOLUS: Satisfactory. PULMONARY ARTERIES: No central or segmental pulmonary emboli. THORACIC AORTA: No aneurysm or dissection. LUNG: The lungs are clear. There is no airspace consolidation or groundglass opacity. Central airways are clear. No endobronchial lesion or bronchiectasis. PLEURA: No pleural effusion or pneumothorax. MEDIASTINUM: Normal heart size. No pericardial effusion. No hilar or mediastinal lymphadenopathy. No evidence of septal bowing or right heart strain. There is a nodule lower pole left thyroid measuring approximately 2.0 x 1.6 cm. Recommend thyroid ultrasound as outpatient for further assessment. CHEST WALL/AXILLA: No axillary or internal mammary lymphadenopathy. OSSEOUS STRUCTURES: No acute or suspicious osseous abnormality. UPPER ABDOMEN: CT abdomen and pelvis described in separate report. No reflux of contrast into the hepatic veins to suggest elevated right heart pressures. CT/CT angio chest PE protocol IMPRESSION: 1. No pulmonary embolism or thoracic aortic dissection. 2. Lungs clear. No pneumothorax, infiltrate, or effusion. 3. Nodule lower pole left thyroid 2.0 x 1.6 cm. Recommend nonemergent thyroid ultrasound as outpatient for further assessment. VTE: negative
--- NOTE | 2021-01-07 13:35 | ECG_ITS ---
Test Reason : HYPERTENSION Blood Pressure : / mmHG Vent. Rate : 115 BPM Atrial Rate : 115 BPM P-R Int : 134 ms QRS Dur : 076 ms QT Int : 310 ms P-R-T Axes : 050 037 046 degrees QTc Int : 428 ms Sinus tachycardia Nonspecific ST abnormality Possible Left atrial enlargement Nonspecific ST abnormality Abnormal ECG Heart rate has increased Referred By: Nohemi Mai Electronically Signed By:MEKHI RIVERS MD
[2021-01-07 14:17] LABS: MANUAL DIFF FLAG NO
[2021-01-07 14:20] LABS: Basophils Absolute Auto 0.1 X10*3/uL (0.0-0.2); Basophils Percent Auto 0.6 % (0-2); Eosinophils Absolute Auto 0.1 X10*3/uL (0.0-0.4); Eosinophils Percent Auto 0.7 % (0-4); Hematocrit 47.1 % (37.0-47.0); Hemoglobin 16.2 g/dl (12.0-16.0); Imm Gran Abs Auto 0.06 X10*3/uL (0.00-0.03); Imm Gran Pct Auto 0.6 % (0.0-0.4); Lymphocytes Absolute Auto 2.3 X10*3/uL (1.2-4.9); Lymphocytes Percent Auto 23.2 % (20-40); Mean Corpuscular HGB Conc 34.4 g/dl (31.0-35.0); Mean Corpuscular Hemoglobin 30.8 pg (27.0-33.0); Mean Corpuscular Volume 89.5 fL (80.0-98.0); Mean Platelet Volume 10.5 fL (9.4-12.3); Monocytes Absolute Auto 0.7 X10*3/uL (0.1-1.2); Monocytes Percent Auto 6.9 % (2-11); Neutrophils Absolute Auto 6.78 x10*3/uL (2.0-8.3); Platelet Count 307 X10*3/uL (160-400); Red Blood Count 5.26 X10*6/uL (4.20-5.50); Red Cell Distribution Width 15.5 % (11.0-16.0)
[2021-01-07 14:28] LABS: Lactic Acid 1.6 mmol/L (0.5-2.0)
[2021-01-07 14:37] LABS: INTERNATIONAL NORM RATIO 1.3 (0.9-1.1); Prothrombin Time 15.4 SEC (9.9-13.0)
[2021-01-07 14:38] LABS: HCG Quantitative < 2 mIU/mL
[2021-01-07 14:43] LABS: B Type Natriuretic Peptide < 10 pg/mL (<100); Troponin-I High Sensitivity 17.9 ng/L (<3.5-17.0)
[2021-01-07 14:44] LABS: Alanine Aminotransferase 59 U/L (0-31); Albumin Level 4.7 g/dL (3.5-5.0); Alkaline Phosphatase 69 U/L (39-117); Anion Gap 20 (12-20); Aspartate Amino Transferase 29 U/L (5-31); Bilirubin Total 1.2 mg/dL (0.0-1.0); Blood Urea Nitrogen 11 mg/dL (9-16); Calcium 10.5 mg/dL (8.4-10.2); Carbon Dioxide 24 mmol/L (22-29); Chloride 99 mmol/L (96-108); Creatinine Clr Calc Pharmacy 114.8; Estimated Glomerular Filt Rate > 60; Glucose Random 94 mg/dL (60-115); Lipase 60 U/L (8-78); Magnesium 2.1 mg/dL (1.6-2.6); Potassium 4.2 mmol/L (3.3-5.1); Sodium 139 mmol/L (135-145); Total Protein 8.6 g/dL (6.5-8.0)
[2021-01-07 14:56] LABS: Cortisol Random 18.3 ug/dL
--- NOTE | 2021-01-07 15:33 | ED_ITS ---
HPI - Recheck/Abnormal Lab/Rx General Chief Complaint: General Medical Stated Complaint: Hypertension Time Seen by Provider: 01/07/21 13:18 Source: patient and family (Mother at bedside) Mode of arrival: wheelchair Limitations: other (Poor historian) History of Present Illness HPI narrative: 25-year-old female who is status post laparoscopic sleeve gastrectomy without hiatal hernia repair on 10/07/[address] Maki presenting to the ED via wheelchair after she was sent by Dr. Baker where she was scheduled to get an endoscope for persistent GERD with associated nausea/vomiting with both liquids and solids since the laparoscopic sleeve gastrectomy although they had to cancel the procedure due to the patient having an elevated blood pressure and tachycardia. There were unable to perform the procedure due to her elevated vitals. Patient reports that after she had the laparoscopic sleeve gastrectomy without hernia repair by Dr. Maki on 10/07/2020 and since then she has been having dizziness where she has fallen multiple times and hit her head although has not lost consciousness over the past 3 months. She reports that her lower abdomen and her legs feel numb as well since the procedure. She reports she has not told any doctors about this despite it going on for 3 months. Her mother reports her most recent fall was last night where she hit her head but did not lose consciousness. Patient reports the dizziness is worse when she stands up. She denies any neck pain/stiffness, sore throat, cough, sputum production, nasal congestion/rhinorrhea, chest pain or shortness of breath, dyspnea on exertion, orthopnea, palpitations, back pain, dysuria, hematuria, black or bloody stools, lower extremity edema or calf tenderness, recent travel or sick contacts, history of DVT or PE, history of hypercoagulation disorder that she is aware of, or any other symptoms complaints or concerns at this time. MD complaint: other (Elevated blood pressure and pulse before endoscopic procedure) Related Data Home Medications Medication Instructions Recorded Confirmed cetirizine 10 mg tablet (Zyrtec) 10 mg PO DAILY PRN 07/28/20 11/12/20 Previous Rx's Medication Instructions Recorded pantoprazole 40 mg tablet,delayed 40 mg PO DAILY #30 tab 11/20/20 release sucralfate 100 mg/mL oral 10 ml PO QID 30 Days #1200 ml 09/17/21 suspension (Carafate) metoprolol succinate 25 mg 25 mg PO DAILY #30 tab 01/07/21 tablet,extended release 24 hr Allergies Allergy/AdvReac Type Severity Reaction Status Date / Time Latex, Natural Rubber Allergy Severe Rash Verified 01/01/21 16:09 Review of Systems Review of Systems: Constitutional : + elevated blood pressure and tachycardia, No Weight loss, No Fever, No Chills, No Night Sweats, No Fatigue, No Malaise ENT/Mouth : No Hearing loss, No Ear Pain, No Nasal Congestion, No Sinus Pain, No Hoarseness, No sore throat, No Rhinorrhea, No Swallowing Difficulty Eyes: No Eye Pain, No Swelling, No Redness, No Foreign Body, No Discharge, No Vision Changes Cardiovascular : No Chest Pain, No SOB, No Dyspnea on Exertion, No Orthopnea, No Edema, No Palpitations Respiratory : No Cough, No Sputum, No Wheezing, No Smoke Exposure, No Dyspnea Gastrointestinal : Positive nausea/vomiting/lower abdominal pain x3 months, No Diarrhea, No Constipation, No Hematochezia, No Melena Genitourinary : no irregular bleeding, No Dysuria, No Urinary Frequency, No Hematuria, No Urinary Incontinence, No Urgency, No Flank Pain, No Urinary Flow Changes, No Hesitancy Musculoskeletal : No joint pain, No Myalgias, No Joint Swelling Skin : No Skin Lesions, No rash Neuro : Positive dizziness with head injury for the past 3 months, positive numbness to her lower extremities and lower abdomen, No Weakness, No Loss of Consciousness, No Headache Psych : No Anxiety/Panic, No Depression, No SI/HI/AH/VH, No Social Issues, Heme/Lymph: No Bruising, No Bleeding,No Lymphadenopathy Endocrine : No Polyuria, No Polydipsia, No Temperature Intolerance Yes all other systems are reviewed and are negative FORMERLY [facility], [facility] Past Medical History Attestation statement: The following information was validated with the patient. Medical History Adjustment disorder, unspecified BMI 45.0-49.9, adult BMI 50.0-59.9, adult Hiatal hernia HTN (hypertension) Pre-op evaluation SOB (shortness of breath) Vitamin A deficiency Vitamin D deficiency Surgical History History of bunionectomy History of repair of hiatal hernia S/P laparoscopic cholecystectomy S/P laparoscopic sleeve gastrectomy Family History Family History Mother No problems noted. Father No problems noted. Brother No problems noted. Brother No problems noted. Sister Obese Asthma Sister No problems noted. Social History Social History Are you a primary furnace caretaker to a significant other at home: No Do you presently have visiting nurse or other home services: No Alcohol intake: never Patient Tobacco Use Status: Never used Tobacco Second Hand Smoke Exposure: No Use of substances other than those prescribed or required for medical reasons: No Advance Directives: No Advance Directives Information Provided: No Patient : No service: No Current occupational status: employed Physical Exam Vital Signs: Vital Signs: Last Vital Signs Temp 98.3 F 01/07/21 13:15 Pulse 89 01/07/21 17:36 Resp 14 01/07/21 17:36 BP 166/114 H 01/07/21 17:36 Pulse Ox 99 01/07/21 17:36 Body Mass Index 32.5 vital signs have been reviewed as normal and appeared to be correct. Blood pressure normal. Heart rate normal. Respiration rate normal. Temperature normal. Oxygen saturation normal. Appearance: Alert. Oriented X3. No acute distress. Head: Normal external exam. Normocephalic. Atraumatic. Able to rotate head bilaterally. Eyes: PERRLA. EOMI. No nystagmus noted. Conjunctiva and sclera normal. Eyelids normal. Corneal reflex normal. ENT: EAC normal. TM's Normal. Hearing normal. Pharynx normal. Uvula midline. tongue midline. Moist mucous membranes. No trismus noted. No drooling noted. No muffled voice noted. Neck: Normal inspection. Neck supple. FROM. No adenopathy. Thyroid Normal. No meningeal signs. No neck mass noted. CVS: Normal heart rate and rhythm. Heart sound normal. No murmurs noted. Pulses normal throughout. Respiratory: No respiratory distress. Painless inspiration. Breath sounds normal. No wheezes/rales/rhonchi noted. Chest nontender. No accessory muscle usage noted or decreased air movement noted. Abdomen: Soft and nontender. Nondistended. No guarding. No rigidity. Bowel sounds normal in all 4 quadrants. No distention noted. No organomegaly noted. No visible injury noted. No rebound tenderness. Negative Rovsing sign. Negative obturator's sign. Negative psoas sign. Negative Brown sign. Back: Full range of motion noted. No CVA tenderness is noted. No signs of trauma. Skin: Skin warm and dry. Normal skin color. Normal skin turgor. No rashes/lesions/lacerations noted. Extremities: Extremities exhibit normal range of motion. Extremities nontender. Able to shrug shoulders bilaterally and keep up against resistance. Neuro: Oriented X 3. No motor deficit. No sensory deficit. Reflexes normal. Moving all extremities. No focal motor deficits. Cranial nerves II-XI intact bilaterally. Facial strength normal. Normal cognition. Speech normal. Gait normal. Strength 5/5 throughout. No pronator drift. No tremor noted. No fasciculations noted. Muscle tone normal throughout. No asterixis noted. Umeois-lq-ustt test normal. Heel to morrell test normal. Tandem gait normal. Does not sway with eyes open. Hand drop from overhead-Mrs. face. No rigidity noted. NIHSS score 0. Course Course Course Narrative: 14pm - 25-year-old female who is status post laparoscopic sleeve gastrectomy without hiatal hernia repair on 10/07/[address] Maki presenting to the ED via wheelchair after she was sent by Dr. Baker where she was scheduled to get an endoscope for persistent GERD with associated nausea/vomiting with both l iquids and solids since the laparoscopic sleeve gastrectomy although they had to cancel the procedure due to the patient having an elevated blood pressure and tachycardia. There were unable to perform the procedure due to her elevated vitals. Patient reports that after she had the laparoscopic sleeve gastrectomy without hernia repair by Dr. Maki on 10/07/2020 and since then she has been having dizziness where she has fallen multiple times and hit her head although has not lost consciousness over the past 3 months. She reports that her lower abdomen and her legs feel numb as well since the procedure. She reports she has not told any doctors about this despite it going on for 3 months. Her mother reports her most recent fall was last night where she hit her head but did not lose consciousness. Patient reports the dizziness is worse when she stands up. On exam patient is alert oriented x3. Not in any acute distress. She denies any symptoms at this time. Although she is noted to be hypertensive and tachycardic. No signs of trauma noted. Neck is nontender and supple. Full range of motion of the neck no signs of trauma. No meningeal signs. Sinus tachycardia. Lungs are clear to auscultation. Abdomen is soft and nontender. No lower extremity edema or calf tenderness is noted. Normal neuro exam. Plan: Labs, CT scan of brain/cervical spine, CTA of chest for PE, CT scan of abdomen and pelvis with both p.o. and IV contrast per Dr. Baker request, lactic acid, EKG, cortisol random/free/24 hour urine, vitamin B, folate, COVID swab placed on a cardiac tech provide IV fluids then re-evaluate. Reevaluation(s) Reevaluation #1: - labs reviewed patient's H&H at 16.2/47.1. Calcium 10.5. Total bilirubin 1.2. ALT 59. Troponin 17.9 we will repeat in 3 hours. Total protein 8.6. Patient negative for . Otherwise all other labs are within normal limits. - COVID 12 is negative. - CT scan of brain/cervical spine/CTA of chest for PE/abdominal with pelvis with p.o. and IV contrast all negative for any acute processes. - Free cortisol is still pending. - repeat troponin still pending. - patient received 5 mg of IV metoprolol will give another 5 mg of IV metoprolol to try to control the patient's blood pressure then re-evaluate. Time: 17:00 Reevaluation #2: - repeat troponin 23.1 therefore negative delta. - free cortisol is still pending - therefore at this time I reviewed the patient's vital signs and it appears that the patient has been having undiagnosed/uncontrolled high blood pressure over the past few months therefore at this time will DC home with 25 mg of p.o. metoprolol daily and instructions to follow-up with her primary care provider her mother at bedside reports that she has a PCP appointment on Monday. Therefore instructed her to follow-up with her PCP and to return if any new or worsening symptoms. Patient and mother at bedside understand and agree this plan. Time: 18:01 [facility] - Recheck/Abnormal Lab/Rx Medical Records Attestation: I reviewed the patient's medical records. Lab Data Attestation: I reviewed the patient's lab results. Result diagrams: 01/07/21 14:10 01/07/21 14:10 Labs: Lab Results 01/07/21 01/07/21 01/07/21 Range/Units 14:10 14:10 14:10 WBC 10.0 (4.8-10.8) X10*3/uL RBC 5.26 (4.20-5.50) X10*6/uL Hgb 16.2 H (12.0-16.0) g/dl Hct 47.1 H (37.0-47.0) % MCV 89.5 (80.0-98.0) fL MCH 30.8 (27.0-33.0) pg MCHC 34.4 (31.0-35.0) g/dl RDW 15.5 (11.0-16.0) % Plt Count 307 (160-400) X10*3/uL MPV 10.5 (9.4-12.3) fL Immature Gran % (Auto) 0.6 H (0.0-0.4) % Neut % (Auto) 68.0 (45-73) % Lymph % (Auto) 23.2 (20-40) % Bent % (Auto) 6.9 (2-11) % Eos % (Auto) 0.7 (0-4) % Baso % (Auto) 0.6 (0-2) % Lymph # (Auto) 2.3 (1.2-4.9) X10*3/uL Bent # (Auto) 0.7 (0.1-1.2) X10*3/uL Eos # (Auto) 0.1 (0.0-0.4) X10*3/uL Baso # (Auto) 0.1 (0.0-0.2) X10*3/uL Abs Immat Gran (auto) 0.06 H (0.00-0.03) X10*3/uL Absolute Neuts (auto) 6.78 (2.0-8.3) x10*3/uL Absolute Nucleated RBC 0.000 (0.0-0.012) X10*3/uL Nucleated RBC % (auto) 0.0 (0.0-0.2) /100WBC PT 15.4 H (9.9-13.0) SEC INR 1.3 H (0.9-1.1) Sodium 139 (135-145) mmol/L Potassium 4.2 D (3.3-5.1) mmol/L Chloride 99 (96-108) mmol/L Carbon Dioxide 24 (22-29) mmol/L Anion Gap 20 (12-20) BUN 11 (9-16) mg/dL Creatinine 0.76 (0.5-1.4) mg/dL Estim Creat Clear Calc 114.8 Estimated GFR > 60 Random Glucose 94 (60-115) mg/dL Lactic Acid (0.5-2.0) mmol/L Calcium 10.5 H D (8.4-10.2) mg/dL Magnesium 2.1 (1.6-2.6) mg/dL Total Bilirubin 1.2 H (0.0-1.0) mg/dL AST 29 (5-31) U/L ALT 59 H (0-31) U/L Alkaline Phosphatase 69 (39-117) U/L Troponin I High Sens (<3.5-17.0) ng/L B-Natriuretic Peptide (<100) pg/mL Total Protein 8.6 H (6.5-8.0) g/dL Albumin 4.7 (3.5-5.0) g/dL Lipase 60 (8-78) U/L Vitamin B12 (200-900) pg/mL Folate (> or = 4.0) ng/mL Beta HCG, Quant mIU/mL Random Cortisol ug/dL COVID-19 ([facility]) (Negative) COVID-19 Clin Com 01/07/21 01/07/21 01/07/21 Range/Units 14:10 14:10 14:10 WBC (4.8-10.8) X10*3/uL RBC (4.20-5.50) X10*6/uL Hgb (12.0-16.0) g/dl Hct (37.0-47.0) % MCV (80.0-98.0) fL MCH (27.0-33.0) pg MCHC (31.0-35.0) g/dl RDW (11.0-16.0) % Plt Count (160-400) X10*3/uL MPV (9.4-12.3) fL Immature Gran % (Auto) (0.0-0.4) % Neut % (Auto) (45-73) % Lymph % (Auto) (20-40) % Bent % (Auto) (2-11) % Eos % (Auto) (0-4) % Baso % (Auto) (0-2) % Lymph # (Auto) (1.2-4.9) X10*3/uL Bent # (Auto) (0.1-1.2) X10*3/uL Eos # (Auto) (0.0-0.4) X10*3/uL Baso # (Auto) (0.0-0.2) X10*3/uL Abs Immat Gran (auto) (0.00-0.03) X10*3/uL Absolute Neuts (auto) (2.0-8.3) x10*3/uL Absolute Nucleated RBC (0.0-0.012) X10*3/uL Nucleated RBC % (auto) (0.0-0.2) /100WBC PT (9.9-13.0) SEC INR (0.9-1.1) Sodium (135-145) mmol/L Potassium (3.3-5.1) mmol/L Chloride (96-108) mmol/L Carbon Dioxide (22-29) mmol/L Anion Gap (12-20) BUN (9-16) mg/dL Creatinine (0.5-1.4) mg/dL Estim Creat Clear Calc Estimated GFR Random Glucose (60-115) mg/dL Lactic Acid 1.6 (0.5-2.0) mmol/L Calcium (8.4-10.2) mg/dL Magnesium (1.6-2.6) mg/dL Total Bilirubin (0.0-1.0) mg/dL AST (5-31) U/L ALT (0-31) U/L Alkaline Phosphatase (39-117) U/L Troponin I High Sens 17.9 H* (<3.5-17.0) ng/L B-Natriuretic Peptide < 10 (<100) pg/mL Total Protein (6.5-8.0) g/dL Albumin (3.5-5.0) g/dL Lipase (8-78) U/L Vitamin B12 (200-900) pg/mL Folate (> or = 4.0) ng/mL Beta HCG, Quant mIU/mL Random Cortisol 18.3 ug/dL COVID-19 ([facility]) (Negative) COVID-19 Clin Com 01/07/21 01/07/21 01/07/21 Range/Units 14:10 14:10 16:38 WBC (4.8-10.8) X10*3/uL RBC (4.20-5.50) X10*6/uL Hgb (12.0-16.0) g/dl Hct (37.0-47.0) % MCV (80.0-98.0) fL MCH (27.0-33.0) pg MCHC (31.0-35.0) g/dl RDW (11.0-16.0) % Plt Count (160-400) X10*3/uL MPV (9.4-12.3) fL Immature Gran % (Auto) (0.0-0.4) % Neut % (Auto) (45-73) % Lymph % (Auto) (20-40) % Bent % (Auto) (2-11) % Eos % (Auto) (0-4) % Baso % (Auto) (0-2) % Lymph # (Auto) (1.2-4.9) X10*3/uL Bent # (Auto) (0.1-1.2) X10*3/uL Eos # (Auto) (0.0-0.4) X10*3/uL Baso # (Auto) (0.0-0.2) X10*3/uL Abs Immat Gran (auto) (0.00-0.03) X10*3/uL Absolute Neuts (auto) (2.0-8.3) x10*3/uL Absolute Nucleated RBC (0.0-0.012) X10*3/uL Nucleated RBC % (auto) (0.0-0.2) /100WBC PT (9.9-13.0) SEC INR (0.9-1.1) Sodium (135-145) mmol/L Potassium (3.3-5.1) mmol/L Chloride (96-108) mmol/L Carbon Dioxide (22-29) mmol/L Anion Gap (12-20) BUN (9-16) mg/dL Creatinine (0.5-1.4) mg/dL Estim Creat Clear Calc Estimated GFR Random Glucose (60-115) mg/dL Lactic Acid (0.5-2.0) mmol/L Calcium (8.4-10.2) mg/dL Magnesium (1.6-2.6) mg/dL Total Bilirubin (0.0-1.0) mg/dL AST (5-31) U/L ALT (0-31) U/L Alkaline Phosphatase (39-117) U/L Troponin I High Sens (<3.5-17.0) ng/L B-Natriuretic Peptide (<100) pg/mL Total Protein (6.5-8.0) g/dL Albumin (3.5-5.0) g/dL Lipase (8-78) U/L Vitamin B12 550 (200-900) pg/mL Folate 5.3 (> or = 4.0) ng/mL Beta HCG, Quant < 2 mIU/mL Random Cortisol ug/dL COVID-19 ([facility]QUEL) Negative (Negative) COVID-19 Clin Com See Note 01/07/21 Range/Units 17:14 WBC (4.8-10.8) X10*3/uL RBC (4.20-5.50) X10*6/uL Hgb (12.0-16.0) g/dl Hct (37.0-47.0) % MCV (80.0-98.0) fL MCH (27.0-33.0) pg MCHC (31.0-35.0) g/dl RDW (11.0-16.0) % Plt Count (160-400) X10*3/uL MPV (9.4-12.3) fL Immature Gran % (Auto) (0.0-0.4) % Neut % (Auto) (45-73) % Lymph % (Auto) (20-40) % Bent % (Auto) (2-11) % Eos % (Auto) (0-4) % Baso % (Auto) (0-2) % Lymph # (Auto) (1.2-4.9) X10*3/uL Bent # (Auto) (0.1-1.2) X10*3/uL Eos # (Auto) (0.0-0.4) X10*3/uL Baso # (Auto) (0.0-0.2) X10*3/uL Abs Immat Gran (auto) (0.00-0.03) X10*3/uL Absolute Neuts (auto) (2.0-8.3) x10*3/uL Absolute Nucleated RBC (0.0-0.012) X10*3/uL Nucleated RBC % (auto) (0.0-0.2) /100WBC PT (9.9-13.0) SEC INR (0.9-1.1) Sodium (135-145) mmol/L Potassium (3.3-5.1) mmol/L Chloride (96-108) mmol/L Carbon Dioxide (22-29) mmol/L Anion Gap (12-20) BUN (9-16) mg/dL Creatinine (0.5-1.4) mg/dL Estim Creat Clear Calc Estimated GFR Random Glucose (60-115) mg/dL Lactic Acid (0.5-2.0) mmol/L Calcium (8.4-10.2) mg/dL Magnesium (1.6-2.6) mg/dL Total Bilirubin (0.0-1.0) mg/dL AST (5-31) U/L ALT (0-31) U/L Alkaline Phosphatase (39-117) U/L Troponin I High Sens 23.1 H* (<3.5-17.0) ng/L B-Natriuretic Peptide (<100) pg/mL Total Protein (6.5-8.0) g/dL Albumin (3.5-5.0) g/dL Lipase (8-78) U/L Vitamin B12 (200-900) pg/mL Folate (> or = 4.0) ng/mL Beta HCG, Quant mIU/mL Random Cortisol ug/dL COVID-19 ([facility]) (Negative) COVID-19 Clin Com ECG Data Attestation: I personally reviewed and interpreted this ECG as follows: ECG interpretation date: 01/07/21 ECG interpretation time: 01:51 Interpretation: Sinus tachycardia with ventricular rate of [address] abnormalities no acute ischemic changes are noted. Similar when compared to prior EKG on 01/02/2020 Critical Care Time Critical Care Time Critical Care Time: Yes Total Critical Care Time: 60 Attestation: I personally attest to this time spent taking care of the patient Discharge Plan Discharge Clinical Impression: Hypertension, Sinus tachycardia, Dizziness, Recurrent falls Patient Disposition: Home, Self-Care Instructions: Hypertension (ED), Dizziness (ED), Tachycardia (ED) Prescriptions: New metoprolol succinate 25 mg tablet extended release 24 hr 25 mg PO DAILY Qty: 30 RF: 0 No Action sucralfate [Carafate] 100 mg/mL suspension 10 ml PO QID 30 Days Qty: 1200 RF: 1 pantoprazole 40 mg tablet,delayed release (DR/EC) 40 mg PO DAILY Qty: 30 RF: 6 cetirizine [Zyrtec] 10 mg tablet 10 mg PO DAILY PRNRF: 0 Referrals: Lesa Redd MD [Primary Care Provider] - 2 days (Needs to follow up within 2 weeks for elevated blood pressure and further evaluation and treatment for elevated blood pressure) Print Language: Marshallese
[2021-01-07] MEDS: iohexoL 350 MG/ML 100 ML INFUS..BTL IV (16:08)
[2021-01-07] MEDS: 0.9 % Sodium Chloride 1,000 ML 999 ML IVCONT (16:19)
[2021-01-07] MEDS: Metoprolol Tartrate 5 MG/5 ML VIAL IVPUSH ×2 (16:21→17:30)
[2021-01-07] MEDS: Diatrizoate Meglumine, Sodium 30 ML SOLUTION PO (16:23)
[2021-01-07] MEDS: Thiamine HCL 100 MG in 0.9 % Sodium Chloride 100 ML 202 MG IV (16:26)
[2021-01-07 16:43] LABS: Folate 5.3 ng/mL (> or = 4.0); Vitamin B12 550 pg/mL (200-900)
[2021-01-07 16:56] LABS: COVID-19 Test Negative (Negative)
[2021-01-07 17:45] LABS: Troponin-I High Sensitivity 23.1 ng/L (<3.5-17.0)
[2021-01-07] MEDS: Cyanocobalamin (Vitamin B-12) 1,000 MCG/ML VIAL 1000 MCG IM (18:10)
[2021-01-13 18:25] LABS: Cortisol, Free 1.21 mcg/dL
== END 2021-01-07 18:30 | disposition home or self-care (01) ==
PROVIDERS: Physician Assistant Medical; Emergency Provider Emergency Medicine; PCP Internal Medicine
DX: R00.0 Tachycardia, unspecified (principal); I10 Essential (primary) hypertension; R42 Dizziness and giddiness; R06.02 Shortness of breath; R51.9 Headache, unspecified; M54.2 Cervicalgia; Z20.822 Contact with and (suspected) exposure to COVID-19; Z79.899 Other long term (current) drug therapy; Z98.84 Bariatric surgery status
CPT/HCPCS: 36415; 70450; 71275; 72125; 74177; 80053; 82530; 82533; 82607; 82746; 83605; 83690; 83735; 83880; 84484; 84702; 85025; 85610; 87040; 87635; 93005; 96365; 96372; 96375; 96376; 99284; 99291; J3411; Q9967

== ENCOUNTER → 2021-02-05 15:40 | Outpatient (BNVA) | payer OTHER, SELFPAY | PROVIDERS: PCP Internal Medicine; Visit Provider Physician Assistant Surgical ==

== ENCOUNTER → 2021-02-17 08:10 | Outpatient (BNVA) | payer OTHER, SELFPAY | PROVIDERS: PCP Internal Medicine; Visit Provider Dietitian, Registered | DX: E66.9 Obesity, unspecified (principal) | CPT/HCPCS: 97803 ==

== ENCOUNTER → 2021-04-09 08:12 | Outpatient (BNVA) | payer OTHER, SELFPAY | PROVIDERS: PCP Internal Medicine; Visit Provider Physician Assistant Surgical ==

== ENCOUNTER → 2021-05-07 08:20 | Outpatient (BNVA) | payer OTHER, SELFPAY | PROVIDERS: PCP Internal Medicine; Visit Provider Dietitian, Registered | DX: E66.9 Obesity, unspecified (principal); Z68.31 Body mass index [BMI] 31.0-31.9, adult | CPT/HCPCS: 97803 ==

== ENCOUNTER 2021-06-18 08:02 | Outpatient (REF) | payer OTHER, SELFPAY ==
[2021-06-18 08:38] LABS: MANUAL DIFF FLAG NO
[2021-06-18 08:53] LABS: Basophils Absolute Auto 0.1 X10*3/uL (0.0-0.2); Basophils Percent Auto 0.9 % (0-2); Eosinophils Absolute Auto 0.1 X10*3/uL (0.0-0.4); Eosinophils Percent Auto 1.3 % (0-4); Hematocrit 35.7 % (37.0-47.0); Hemoglobin 11.3 g/dl (12.0-16.0); Imm Gran Abs Auto 0.02 X10*3/uL (0.00-0.03); Imm Gran Pct Auto 0.3 % (0.0-0.4); Lymphocytes Absolute Auto 2.2 X10*3/uL (1.2-4.9); Lymphocytes Percent Auto 31.8 % (20-40); Mean Corpuscular HGB Conc 31.7 g/dl (31.0-35.0); Mean Corpuscular Hemoglobin 30.3 pg (27.0-33.0); Mean Corpuscular Volume 95.7 fL (80.0-98.0); Mean Platelet Volume 10.5 fL (9.4-12.3); Monocytes Absolute Auto 0.4 X10*3/uL (0.1-1.2); Monocytes Percent Auto 5.2 % (2-11); Neutrophils Absolute Auto 4.2 x10*3/uL (2.0-8.3); Neutrophils Percent Auto 60.5 % (45-73); Platelet Count 300 X10*3/uL (160-400); Red Blood Count 3.73 X10*6/uL (4.20-5.50); Red Cell Distribution Width 13.3 % (11.0-16.0); White Blood Count 6.9 X10*3/uL (4.8-10.8)
[2021-06-18 09:41] LABS: Anion Gap 9 (12-20); Blood Urea Nitrogen 11 mg/dL (9-16); Calcium 9.4 mg/dL (8.4-10.2); Carbon Dioxide 28 mmol/L (22-29); Chloride 108 mmol/L (96-108); Estimated Glomerular Filt Rate > 60; Glucose Random 84 mg/dL (60-115); Iron 57 mcg/dL (30-160); Percent Iron Saturation 16 % (15-50); Potassium 4.5 mmol/L (3.3-5.1); Sodium 140 mmol/L (135-145); Total Iron Binding Capacity 351 mcg/dL (228-428); Unsaturated Iron Binding 294 ug/dL
[2021-06-18 09:45] LABS: Ferritin 10 ng/mL (10-122); TSH reflex Free T4 2.91 uIU/mL (0.32-4.0); Vitamin D 25-OH Total 32.8 ng/mL (>30)
[2021-06-18 10:02] LABS: Folate 12.4 ng/mL (> or = 4.0); Vitamin B12 351 pg/mL (200-900)
[2021-06-22 16:01] LABS: Zinc 59 mcg/dL (60-130)
[2021-06-23 08:56] LABS: Vitamin A 27 mcg/dL (38-98)
[2021-06-25 17:02] LABS: Vitamin B1 12 nmol/L (8-30)
== END 2021-06-18 08:03 | disposition home or self-care (01) ==
LOC: HO.LAB 08:02
PROVIDERS: PCP Internal Medicine; Visit Provider Physician Assistant Surgical
DX: E66.9 Obesity, unspecified (principal); Z98.84 Bariatric surgery status
CPT/HCPCS: 36415; 80048; 82306; 82607; 82728; 82746; 83540; 84425; 84443; 84590; 84630; 85025

== ENCOUNTER → 2021-07-30 09:00 | Outpatient (BNVA) | payer OTHER, SELFPAY | PROVIDERS: PCP Internal Medicine; Visit Provider Physician Assistant Surgical | DX: E66.9 Obesity, unspecified (principal) ==